=== PATIENT | male | born 1955 ===

== ENCOUNTER 2024-03-30 12:46 | Inpatient (IN) | payer MEDICARE, MEDICAID, SELFPAY ==
--- NOTE | 2024-03-30 | ECG_ITS ---
Test Reason : REPEAT TO EVAL FOR A.FIB Blood Pressure : / mmHG Vent. Rate : 090 BPM Atrial Rate : 000 BPM P-R Int : 000 ms QRS Dur : 080 ms QT Int : 382 ms P-R-T Axes : 000 008 017 degrees QTc Int : 467 ms Atrial fibrillation Abnormal ECG When compared with ECG of 30-MAR-2024 13:11, No significant change was found Referred By: Jayce Robles Electronically Signed By:MASTER JARQUIN
--- NOTE | ~2024-03-30 | CT_ITS ---
EXAMINATION: CT HEAD WITHOUT CONTRAST CLINICAL INFORMATION: Seizure. COMPARISON: None available. TECHNIQUE: Contiguous axial imaging was performed from the skull base to vertex without intravenous administration of contrast. This CT examination was performed using dose optimization techniques as appropriate, variously including the following: *Automated exposure control *Adjustment of mA and/or kV according to patient size (this includes techniques or standardized protocols for targeted exams where dose is matched to indication/reason for exam; i.e. extremities or head) *Use of iterative reconstruction technique DLP: 661 mGy-cm FINDINGS: No intracranial hemorrhage, large infarction, or mass lesion is seen. Diffuse cortical atrophy. Mild bilateral chronic periventricular white matter ischemic change. No extra-axial collection is appreciated. The ventricles are normal in size and configuration without evidence of hydrocephalus. The visualized paranasal sinuses and mastoid air cells are clear. CT/CT head/brain wo IV con IMPRESSION: No acute intracranial finding. Electronically signed by: Dutch Rebolledo MD 03/30/2024 02:41 PM EDT
--- NOTE | ~2024-03-30 | XR_ITS ---
EXAMINATION: XR CHEST CLINICAL INFORMATION: Seizure. COMPARISON: None available. TECHNIQUE: Portable AP view of the chest was obtained. FINDINGS: The study is limited by portable technique, suboptimal inspiration, and overlying leads. The retrocardiac region is poorly evaluated; retrocardiac focal infiltrate cannot be confirmed or excluded. The right lung appears grossly clear. The cardiac silhouette is suboptimally evaluated. The aorta may be mildly uncoiled, suggesting hypertension. The bones and soft tissues appear unremarkable. XR/XR chest 1V IMPRESSION: Findings as above. Electronically signed by: Dutch Rebolledo MD 03/30/2024 02:17 PM EDT RP
--- NOTE | ~2024-03-30 | XR_ITS ---
EXAMINATION: XR RIBS, LEFT CLINICAL INFORMATION: Fell 3 weeks ago. COMPARISON: None available. TECHNIQUE: 3 views of the left ribs were obtained. FINDINGS: There is mild streaky opacity at both lung bases, most suggestive of atelectasis. No consolidation or pneumothorax., or pleural effusion. There is slight blunting of the costophrenic angle suggestive of small pleural effusions. There are multiple left-sided rib fractures. There is a mildly displaced fracture of the seventh lateral rib, minimally displaced fracture of the left anterior eighth rib, healing fracture of the left posterior ninth rib with minimally nondisplaced fracture of the left lateral ninth rib, markedly displaced fracture of the 10th anterolateral rib. Most of these fractures are not healed. XR/XR ribs LT min 3V w CXR1V IMPRESSION: 1. Multiple left-sided rib fractures. 2. No pneumothorax. 3. Small bilateral pleural effusions. 4. Mild bibasilar atelectasis. Electronically signed by: Loni Ng MD 03/31/2024 01:37 PM EDT
--- NOTE | 2024-03-30 12:53 | ED_ITS ---
HPI - General Adult General Chief complaint: Seizure Stated complaint: SEIZURE,?ETOH WITHDRAWAL Time Seen by Provider: 03/30/24 12:53 Source: patient and EMS Mode of arrival: EMS Limitations: altered mental status History of Present Illness ED Provider: DR. Castorena HPI narrative: this is a 68-year-old male who is visiting friends in the area no old record in our hospital for this patient, according to EMS report patient is known to have ETOH issue, patient was witnessed by EMS having a seizure was given 2 mg of Versed IM that controlled his seizure, patient in postictal status, awake and alert but incoherent, patient is non historian at the moment, urine incontinence, no tongue bite. discharge paper from [facility] with instruction of alcohol withdrawal seizure was found in patient's belongings. Related Data Allergies Allergy/AdvReac Type Severity Reaction Status Date / Time No Known Allergies Allergy Verified 03/30/24 13:03 Review of Systems 2 Review of Systems: Yes Unobtainable due to mental status PMFSH Social History Social History Alcohol intake: current Do you have a plan to hurt others: No Plan Physical Exam ED Vital Signs: Vital Signs - 24 hr 03/30/24 13:00 03/30/24 14:06 Temperature 98.5 F 98.9 F Pulse Rate 116 H 96 Respiratory Rate 32 H 16 Blood Pressure 169/99 H 154/95 H Pulse Oximetry 96 98 Oxygen Delivery Method Room Air Room Air BMI result Body Mass Index 25.6 Vital signs have been reviewed and appear to be correct. Blood pressure elevated. Heart rate elevated Respiratory rate normal. Temperature normal. Oxygen saturation normal. Appearance: unkempt, disheveled, awake non historian. No acute distress. Head: Normal external exam. Normocephalic. Atraumatic. No Khan signs noted. No raccoon eyes noted Eyes: PERRLA. EOMI. Conjunctiva and sclera normal. Eyelids normal. ENT: TM's Normal. Pharynx normal. Uvula midline. Moist mucous membranes. No trismus noted. No drooling noted. No muffled voice noted. Neck: Normal inspection. Neck supple. FROM. No adenopathy. Thyroid Normal. No meningeal signs. No neck mass noted. CVS: Normal heart rate and rhythm. Heart sound normal. No murmurs noted. Pulses normal throughout. Respiratory: No respiratory distress. Painless inspiration. Breath sounds normal. No wheezes/rales/rhonchi noted. Chest nontender. No accessory muscle usage noted or decreased air movement noted. Abdomen: Soft and nontender. Bowel sounds normal in all 4 quadrants. No distention noted. No organomegaly noted. No visible injury noted. Back: No CVA tenderness. Full range of motion noted. Skin: Skin warm and dry. Normal skin color. Normal skin turgor. No rashes/lesions/lacerations noted. Extremities: No lower extremity edema. Extremities exhibit normal range of motion. Extremities nontender. Neuro: Cranial nerve exam: II-XII are grossly intact No motor deficit. No sensory deficit. Reflexes normal. Course Reevaluation(s) Reevaluation #1: 68-year-old male with witnessed seizure by EMS that was controlled with Versed IM, patient with history of alcohol withdrawal seizure, CT head unremarkable. Will start the patient on phenobarb Hypomagnesemia will replete magnesium. Time: 15:01 Medications Administered Discontinued Medications Generic Name Dose Route Start Last Admin Trade Name Freq PRN Reason Stop Dose Admin Sodium Chloride 1,000 mls @ 999 mls/hr 03/30/24 13:01 03/30/24 13:43 Ns IV 03/30/24 14:01 999 mls/hr .Q1H1M ONE Administration Phenobarbital Sodium 292 mg 03/30/24 14:00 03/30/24 14:04 Phenobarbital Sodium 130 Mg/Ml Im Once IM 03/30/24 14:01 292 mg ONCE ONE Administration Protocol Medical Decision Making Differential Diagnosis Differential Diagnoses: The differential diagnosis associated with the presentation includes ( intracranial bleed, alcohol withdrawal seizure, electrolyte derangement, severe anemia , alcohol intoxication, substance abuse.) Admission/Observation Consideration of admission/observation: Escalation of care including admission/observation considered Consult Healthcare Provider Management of the patient was discussed with: Hospitalist ( Dr. Baugh) Lab Data MDM Lab Attestation statement: I reviewed the patient's lab results. 03/30/24 14:51 03/30/24 14:51 Labs: Lab Results 03/30/24 03/30/24 Range/Units 14:51 14:53 WBC 9.0 (4.8-10.8) X10*3/uL RBC 3.63 L (4.60-5.80) X10*6/uL Hgb 12.0 L (14.0-18.0) g/dl Hct 35.7 L (42.0-52.0) % MCV 98.3 H (80.0-98.0) fL MCH 33.1 H (27.0-33.0) pg MCHC 33.6 (31.0-36.0) g/dl RDW 13.8 (11.0-16.0) % Plt Count 334 (160-400) X10*3/uL MPV 8.9 L (9.4-12.4) fL Immature Gran % (Auto) 0.8 H (0.0-0.4) % Neut % (Auto) 86.7 H (45-73) % Lymph % (Auto) 6.6 L (20-40) % [place] % (Auto) 5.1 (2-11) % Eos % (Auto) 0.4 (0-4) % Baso % (Auto) 0.4 (0-2) % Lymph # (Auto) 0.6 L (1.2-4.9) X10*3/uL [place] # (Auto) 0.5 (0.1-1.2) X10*3/uL Eos # (Auto) 0.0 (0.0-0.4) X10*3/uL Baso # (Auto) 0.0 (0.0-0.2) X10*3/uL Abs Immat Gran (auto) 0.07 H (0.00-0.03) X10*3/uL Absolute Neuts (auto) 7.8 (2.0-8.3) x10*3/uL Absolute Nucleated RBC 0.000 (0.0-0.012) X10*3/uL Nucleated RBC % (auto) 0.0 (0.0-0.2) /100WBC Troponin I High Sens 3.4 (<3.5-35.0) ng/L B-Natriuretic Peptide 432 H (<100) pg/mL Urine Color Yellow Urine Appearance Clear Urine pH 6.0 (5.0-9.0) Ur Specific [place] 1.015 (1.005-1.025) Urine Protein 30 (1+) H (Neg-Trace) mg/dL Urine Glucose (UA) Negative (Negative) mg/dL Urine Ketones 15 (Negative) mg/dL Urine Blood Negative (Negative) Urine Nitrite Negative (Negative) Ur Leukocyte Esterase Negative (Negative) Urine RBC 0-2 (0-2) /HPF Urine WBC 0-5 (0-5) /HPF Ur Squamous Epith Cells 0-2 (0-2) /HPF Urine Bacteria None Seen (None Seen) Hyaline Casts 0-2 (0-2) /LPF Urine Opiates Screen Not Detected (Not Detect) Ur Buprenorphine Scrn Not Detected (Not Detect) ng/mL Ur Oxycodone Screen Not Detected (Not Detect) ng/mL Urine Methadone Screen Not Detected (Not Detect) ng/mL Urine Fentanyl Screen Not Detected (Not Detect) Ur Barbiturates Screen POSITIVE H (Not Detect) Ur Phencyclidine Scrn Not Detected (Not Detect) Ur Amphetamines Screen Not Detected (Not Detect) U Benzodiazepines Scrn POSITIVE H (Not Detect) Urine Cocaine Screen Not Detected (Not Detect) U Marijuana (THC) Screen Not Detected (Not Detect) Ethyl Alcohol < 10 mg/dL Independent Interpretation I performed an independent interpretation of an: Plain X-Ray (The study is limited by portable technique, suboptimal inspiration, and overlying leads. The retrocardiac region is poorly evaluated; retrocardiac focal infiltrate cannot be confirmed or excluded. The right lung appears grossly clear. The cardiac silhouette is suboptimally evaluated. The aorta ) and CT Scan ( head: No acute intracranial findings) Radiology Impression Discussion of test interpretation with radiology: I have reviewed the radiologist's reading. Chronic Conditions Patient?s care impacted by: Other ( alcohol consumption) Discharge Plan Discharge Clinical Impression: Alcohol related seizure, Hypomagnesemia Patient Disposition: Admitted As Inpatient
[2024-03-30 13:00] VITALS: BP 138/80; BP 169/99; PULSE 110; PULSE 116; RESP 32; TEMP 36.9; O2SAT 96; BMI 25.6
--- NOTE | 2024-03-30 13:02 | ECG_ITS ---
Test Reason : SEIZURE Blood Pressure : / mmHG Vent. Rate : 094 BPM Atrial Rate : 000 BPM P-R Int : 000 ms QRS Dur : 078 ms QT Int : 358 ms P-R-T Axes : 000 002 015 degrees QTc Int : 447 ms Atrial fibrillation Abnormal ECG No previous ECGs available Referred By: Talat Castroena Electronically Signed By:MASTER JARQUIN
[2024-03-30] MEDS: 0.9 % Sodium Chloride 1,000 ML 999 ML IV (13:43)
[2024-03-30] MEDS: PHENobarbitaL sodium 130 MG/ML IM ONCE 292 MG IM (14:04)
[2024-03-30 14:06] VITALS: BP 154/95; PULSE 96; RESP 16; TEMP 37.2; O2SAT 98
[2024-03-30 14:57] LABS: MANUAL DIFF FLAG NO
--- NOTE | 2024-03-30 14:58 | PC.NURSE ---
Pt difficult stick, labs drawn/sent. Pt voided in urinal, samples sent to lab.
[2024-03-30 15:01] LABS: Basophils Percent Auto 0.4 % (0-2); Eosinophils Percent Auto 0.4 % (0-4); Hematocrit 35.7 % (42.0-52.0); Imm Gran Abs Auto 0.07 X10*3/uL (0.00-0.03); Imm Gran Pct Auto 0.8 % (0.0-0.4); Lymphocytes Absolute Auto 0.6 X10*3/uL (1.2-4.9); Lymphocytes Percent Auto 6.6 % (20-40); Mean Corpuscular HGB Conc 33.6 g/dl (31.0-36.0); Mean Corpuscular Hemoglobin 33.1 pg (27.0-33.0); Mean Corpuscular Volume 98.3 fL (80.0-98.0); Mean Platelet Volume 8.9 fL (9.4-12.4); Monocytes Absolute Auto 0.5 X10*3/uL (0.1-1.2); Monocytes Percent Auto 5.1 % (2-11); Neutrophils Absolute Auto 7.8 x10*3/uL (2.0-8.3); Neutrophils Percent Auto 86.7 % (45-73); Platelet Count 334 X10*3/uL (160-400); Red Blood Count 3.63 X10*6/uL (4.60-5.80); Red Cell Distribution Width 13.8 % (11.0-16.0)
[2024-03-30 15:04] LABS: Appearance Urine Clear; Color Urine Yellow; Glucose Urine UA Negative (Negative); Leukocyte Esterase Urine Negative (Negative); Nitrite Urine Negative (Negative); Specific Gravity - Urine 1.015 (1.005-1.025); UMIC TRIGGER UACC YES; Urine Blood Negative (Negative); Urine Ketones 15 mg/dL (Negative); Urine Protein 30 (1+) mg/dL (Neg-Trace)
[2024-03-30 15:06] LABS: Bacteria Urine None Seen (None Seen); Hyaline Casts Urine 0-2 /LPF (0-2); RBC Urine 0-2 /HPF (0-2); Squamous Epithelial Cell Urine 0-2 /HPF (0-2); WBC Urine 0-5 /HPF (0-5)
[2024-03-30 15:14] LABS: Amphetamine Screen Urine Not Detected (Not Detect); Barbiturates, Urine POSITIVE (Not Detect); Benzodiazepines Screen Urine POSITIVE (Not Detect); Buprenorphine Scr Not Detected (Not Detect); Cannabinoid Screen Urine Not Detected (Not Detect); Cocaine Screen Urine Not Detected (Not Detect); Fentanyl, urine Not Detected (Not Detect); Methadone Screen, Urine Not Detected (Not Detect); Opiate Screen Urine Not Detected (Not Detect); Oxycodone Screen Urine Not Detected (Not Detect); Phencyclidine Screen Urine Not Detected (Not Detect)
[2024-03-30 15:18] LABS: Ethanol < 10 mg/dL
[2024-03-30 15:23] LABS: B Type Natriuretic Peptide 432 pg/mL (<100)
[2024-03-30 15:26] LABS: Troponin-I High Sensitivity 3.4 ng/L (<3.5-35.0)
[2024-03-30 15:35] LABS: Alanine Aminotransferase 41 U/L (0-40); Albumin Level 3.7 g/dL (3.5-5.0); Alkaline Phosphatase 126 U/L (39-117); Anion Gap 14 (12-20); Aspartate Amino Transferase 38 U/L (5-37); Bilirubin Direct 0.5 mg/dL (0.0-0.5); Bilirubin Total 1.3 mg/dL (0.0-1.0); Blood Urea Nitrogen 6 mg/dL (9-16); Calcium 8.7 mg/dL (8.4-10.2); Carbon Dioxide 27 mmol/L (22-29); Chloride 99 mmol/L (96-108); Creatinine Clr Calc Pharmacy 123.7; Estimated Glomerular Filt Rate > 60; Glucose Random 132 mg/dL (60-115); Lipase 31 U/L (8-78); Magnesium 1.3 mg/dL (1.6-2.6); Potassium 3.4 mmol/L (3.3-5.1); Sodium 137 mmol/L (135-145); Total Protein 6.9 g/dL (6.5-8.0)
--- NOTE | 2024-03-30 15:42 | PC.NURSE ---
patient IV infiltrated, attempting second IV access
[2024-03-30] MEDS: Magnesium Sulfate/H2O 2 GM/50 ML PIGGYBACK IV (16:30)
--- NOTE | 2024-03-30 16:31 | PC.NURSE ---
patient iv in right AC #20
--- NOTE | 2024-03-30 16:32 | PC.NURSE ---
patient asked this RN if he was in a room this morning , patient redirected that he came in from someone house after having a seizure. patient states that he was with his brother yajaira at his home. patient states he has not drank since sunday.
--- NOTE | 2024-03-30 16:39 | PHA.MEDREC ---
Addendum entered by Bill Dorsey [facility] 03/30/24 17:37: Reviewed by [facility] Addendum entered by Alyssa Uribe 03/30/24 17:34: Called [facility] in [place], [place]. They report baby aspirin, a MV, folic acid, magnesium, and thiamine had prescriptions sent on 02/14/24 but patient never picked them up. The Niacin was picked up this month. Addendum entered by Bill Dorsey [facility] 03/30/24 16:50: Reviewed by [facility]. Original Note: Pharmacy Consult ? Medication Reconciliation Pharmacy has completed the medication reconciliation. Used claim history to complete.
--- NOTE | 2024-03-30 16:42 | PC.NURSE ---
spoke to patients brother yajaira on the phone, states that patient was walking to the bathroom when he started to have a seizure and fell, patient then had second longer seizure until ems arrived. per patients brother patient as picked up sunday at [facility] after admission, patients brother states he does not know how he was discharged due to patient not being able to ambulate safely. patients brother states patient had empty liquor bottle with him when picked up but has no had any alcohol while staying at his house because he does n ot allow him to drink when he is there. patients brother states he is unsure if patient has stable living situation in [facility]
--- NOTE | 2024-03-30 16:51 | P.HPHOSP_ITS ---
History of Present Illness Date of Service: 03/30/24 Chief Complaint: seizure The patient is a 68-year-old male who is brought into the emergency room by EMS for what appears to be alcohol withdrawal seizures. The patient is currently unable to provide a meaningful history and hence the history is obtained from the ED providers report. Apparently the patient is visiting friends in the area and was brought to the ED by paramedics. Apparently he had a seizure which was treated with 2 mg of Versed by EMS. On arrival to the ED the patient was found to have the following on workup: Magnesium 1.3, bilirubin 1.3, AST 30 ALT 41. The patient was treated with loading dose of phenobarbital and now will be admitted for suspected alcohol withdrawal seizures. The patient is seen examined the emergency room around 04:00 o'clock. He appears to be less confused. He reports that he drinks several beers and ?nips? daily. Reports that his last drink was 2-3 days ago but is not 100% sure. He reports prior alcohol withdrawal seizure. He reports prior hospitalizations for alcohol withdrawal. Past medical history Reports being on metoprolol but unsure why Past surgical history Denies Family history Unclear Social history reports to drinking daily Review of Systems 2 Review of Systems: Negative except HPI/interval history. PMFSH Social History Alcohol intake: current Advance Directives: No Advance Directives Information Provided: No Do you have a plan to hurt others: No Plan Meds Allergies Allergy/AdvReac Type Severity Reaction Status Date / Time No Known Allergies Allergy Verified 03/30/24 13:03 Active Medications: Current Medications Magnesium Sulfate (Magnesium Sulfate/H2o) 2 gm in 50 mls @ 25 mls/hr IV ONCE ONE Stop: 03/30/24 17:34 Last Admin: 03/30/24 16:30 Dose: 25 mls/hr Pharmacy Consult (Consult Rx Etoh Phenob Im/Po) 1 each MISCELLANE ONCE PRN; Protocol PRN Reason: Consult order Phenobarbital (Phenobarbital 15 Mg Tablet) 45 mg PO BID RYAN; Protocol Stop: 04/01/24 21:01 Phenobarbital (Phenobarbital 15 Mg Tablet) 15 mg PO DAILY RYAN; Protocol Stop: 04/05/24 09:01 Phenobarbital (Phenobarbital 15 Mg Tablet) 15 mg PO BID RYAN; Protocol Stop: 04/03/24 21:01 Phenobarbital Sodium (Phenobarbital Sodium 130 Mg/Ml Vial Im Q3hx2) 1 mg IM Q3H RYAN; Protocol Stop: 03/30/24 20:01 Home Medications ?Medication ?Instructions ?Recorded ?Confirmed ?Last Taken ?Type metoprolol succinate 200 mg 200 mg PO DAILY 03/30/24 03/30/24 Unknown History tablet,extended release 24 hr niacin 100 mg tablet 100 mg PO DAILY 03/30/24 03/30/24 Unknown History Physical Exam 2 Vital Signs and Narrative: Vital Signs: Last Vital Signs Temp 98.9 F 03/30/24 14:06 Pulse 96 03/30/24 14:06 Resp 16 03/30/24 14:06 BP 154/95 H 03/30/24 14:06 Pulse Ox 98 03/30/24 14:06 O2 Del Method Room Air 03/30/24 14:06 BMI result Body Mass Index 25.6 Const: Other: Constitutional - awake and alert, oriented to place and month, disoriented to situation Eyes - PERRLA, EOMI Cardiovascular - S1S2, RRR, No edema Respiratory - Normal lung expansion, Normal respiratory effort, No respiratory distress, CTA bilaterally Gastrointestinal - NT / ND; +BS; No rebound or guarding - No CVA tenderness Extremities - no calf tenderness bilaterally, no swelling Musculoskeletal - Normal inspection, normal ROM Skin - Warm/Dry Neurological - no focal deficits, able to follow basic instructions Psychological - Appropriate affect Results Labs 03/30/24 14:51 03/30/24 14:51 Labs: Laboratory Results - last 24 hr 03/30/24 03/30/24 14:51 14:53 MCV 98.3 H MCH 33.1 H MCHC 33.6 RDW 13.8 Plt Count 334 MPV 8.9 L Immature Gran % (Auto) 0.8 H Neut % (Auto) 86.7 H Lymph % (Auto) 6.6 L [place] % (Auto) 5.1 Eos % (Auto) 0.4 Baso % (Auto) 0.4 Lymph # (Auto) 0.6 L [place] # (Auto) 0.5 Eos # (Auto) 0.0 Baso # (Auto) 0.0 Abs Immat Gran (auto) 0.07 H Absolute Neuts (auto) 7.8 Absolute Nucleated RBC 0.000 Nucleated RBC % (auto) 0.0 Anion Gap 14 Estim Creat Clear Calc 123.7 Estimated GFR > 60 Random Glucose 132 H Calcium 8.7 Magnesium 1.3 L* Total Bilirubin 1.3 H Direct Bilirubin 0.5 AST 38 H ALT 41 H Alkaline Phosphatase 126 H Troponin I High Sens 3.4 B-Natriuretic Peptide 432 H Total Protein 6.9 Albumin 3.7 Lipase 31 Urine Color Yellow Urine Appearance Clear Urine pH 6.0 Ur Specific [place] 1.015 Urine Protein 30 (1+) H Urine Glucose (UA) Negative Urine Ketones 15 Urine Blood Negative Urine Nitrite Negative Ur Leukocyte Esterase Negative Urine RBC 0-2 Urine WBC 0-5 Ur Squamous Epith Cells 0-2 Urine Bacteria None Seen Hyaline Casts 0-2 Urine Opiates Screen Not Detected Ur Buprenorphine Scrn Not Detected Ur Oxycodone Screen Not Detected Urine Methadone Screen Not Detected Urine Fentanyl Screen Not Detected Ur Barbiturates Screen POSITIVE H Ur Phencyclidine Scrn Not Detected Ur Amphetamines Screen Not Detected U Benzodiazepines Scrn POSITIVE H Urine Cocaine Screen Not Detected U Marijuana (THC) Screen Not Detected Ethyl Alcohol < 10 Imaging Radiologist's Impressions: Impressions Chest X-Ray 03/30/24 13:00 IMPRESSION: Findings as above. Electronically signed by: Dutch Rebolledo MD 03/30/2024 02:17 PM EDT RP Head CT 03/30/24 13:10 IMPRESSION: No acute intracranial finding. Electronically signed by: Dutch Rebolledo MD 03/30/2024 02:41 PM EDT RP Assessment and Plan (1) Hypomagnesemia: Status: Acute (2) Alcohol related seizure: Status: Acute Plan 68-year-old male with a reported history of alcohol use and prior alcohol withdrawal seizures who presents to the ED with what appears to be a withdrawal seizure. 1. Alcohol dependence with acute alcohol withdrawal seizure Given IV Versed by the EMS Initiated on phenobarb per protocol, will continue Monitor lytes consider care team / addicition med consult 2. Hypo mg Given 2 g IV in the ED, will repeat tomorrow 3. ? A. fib EKG appears to be sinus with ? PAC will repeat EKG Full code DVT pptx - lovenox Patient with alcohol withdrawal seizure and electrolyte abnormalities therefore expected to require at least 2 midnights in the hospital for management, hence he will be admitted as inpatient. Quality Stroke Does the patient have a stroke diagnosis?: No VTE Prior VTE?: No VTE Risk Level:: Medical - moderate - high VTE Device Contraindication: N/A - Device Ordered VTE Drug Contraindication: N/A - Med Ordered
--- OUTSIDE RECORDS SUMMARY | 2024-03-30 17:05 | XMS_ITS ---
Author Organization [facility] Address [address] [address] Care Team Providers Care Rerecording Mixer Name Role Phone JOSE ANTONIO CALDWELL Unavailable [phone] Allergies No Known Allergies Vital Signs Temperature 97.9 degrees Fahrenheit 07/19/19 24 Blood pressure systolic 118 mm Hg 07/19/19 24 Blood pressure diastolic 71 mm Hg 024 Heart Rate 66 /min 07/19/2023 Respiratory Rate 18 /min 07/19/2023 Oximetry 96 % 07/19/2023 Encounters Encounter Location Date Provider Diagnosis [address] [address] 07/19/2023 JOSE ANTONIO CALDWELL Elevated liver enzymes R74.8 and Scabies B86 Assessments Encounter Date Diagnosis (ICD Code) Assessment Notes Treatment Notes Treatment Clinical Notes 07/19/2023 Elevated liver enzymes (ICD-10 - R74.8) Will follow labs closely 07/19/2023 Scabies (ICD-10 - B86) Reports new skin itchiness. cont with topical treatment and add PRN Benadryl x 1 Plan Of Treatment Treatment Notes Assessment Notes Elevated liver enzymes Will follow labs closely Scabies Reports new skin itc hiness. cont with topical treatment and add PRN Benadryl x 1 Next Appt Details Follow Up: prn, Reason: Progress Notes * Carl RIOSDOB:1955 ( 67 yo M)Acc No.[id number]:07/19/2023 Progress Notes Patient:?Carl RIOS Provider:?JOSE ANTONIO CALDWELL NP :1955???Age:67 Y???Sex:Male Robert e:07/19/2023 Phone: Address:[address] [place] [id number] Subjective: * Chief Complaints: * ??? * HPI: ???New/Follow-up Patient Consult:? 67 year old male was seen and examined for management of acute illnesses. * ROS:?General/Constitutional:?Denies?Change in appetite.?Denies?Chills.?Denies?Fatigue.?Denies?Fever.?ENT:?Denies?Decreased sense of smell.?Denies?Difficulty in swallowing.?Denies?Ear problems.?Denies?Pain.?Respiratory:?Denies?Breathing problems.?Denies?Cough.?Denies?Shortness of breath.?Cardiovascular:?Denies?Chest pain.?Denies?Dizziness.?Denies?Palpitations.?Gastrointestinal:?Denies?Constipation.?Denies?Diarrhea.?Denies?Nausea.?Denies?Vomiting.?Musculoskeletal:?Denies?Arthritis/Arthralgia.?Denies?Muscle aches.?Admits?Pain in shoulder(s).?Skin:?Denies?Dry skin.?Admits?Itching.?Admits?Rash.?Neurologic:?Denies?Difficulty speaking.?Denies?Headache.?Denies?Pain.?Denies?Tingling/Numbness.?Denies?Tremor. ? * Medical History:? * Surgical History:? * Hospitalization/Major Diagno stic Procedure:? * Social History:?Positive alcohol. Denies tobacco. He is homeless. Code Status: His code status is full. * Medications:? * Allergies:?N.K.D.A. Objective: * Vitals:?BP:118/71mm Hg, HR:6 6/min, Temp:97.9F, RR:18/min, Oxygen sat %:96%. * Examination: ???General Examination: ?GENERAL APPEARANCE:?, pleasant, in no acute distress.?HEAD:?normocephalic , atraumatic.?EYES:?extraocular movement intact (EOMI), PERRL , sclera non-icteric.?EARS:??hearing mildly diminished.?ORAL CAVITY:?, mucosa moist.?THROAT:?no erythema , no exudate.?NECK/THYROID:?neck supple.?SKIN:?pale, warm, dry, no rashes.?HEART:?regular rate and rhythm , no murmurs, rubs, gallops.?LUNGS:?diminished breath sounds throughout, no wheezes, rales, rhonchi.?ABDOMEN:?soft, nontender, nondistended , bowel sounds present , no masses palpable , no organomegaly.?EXTREMITIES:?no edema, no focal weakness.?NEUROLOGIC:?alert, oriented to self, motor strength symmetric upper and lower extremities. No focal weakness.?PSYCH:?Calm, cooperative. No sign of anxiety or depression.? * Physical Examination:?Medications:?Medications?Augmentin 1 g b.i.d. for two days. Tylenol 650 mg q.6h. as needed for pain. Folic acid 1 mg daily. Metoprolol succinate 200 mg. Multivitamin one daily. Niacinamide 500 mg daily. Thiamine 100 mg daily. Aspirin has been discontinued.?As mentioned, he will need the dose permethrin as well as oral agent in a week; that will be the ivermectin..?Labs:?Labs?07/12/23: CBC-Wbc 7.7, Hgb 12.7, Hct 38.1, Plt : BMP- Na 136, K 5.0, BUN 13, Creat 0.69, GFR : LFT- Alk Phos 98,? ALT 66? AST 87.? Assessment: * Assessment: 1.?Scabies - B86 (Primary)?2 .?Elevated liver enzymes - R74.8? Plan: * Treatment: 2.?Elevated liver enzymes? Notes: Will follow labs closely?? * Procedure Codes:?95546 SHILPA ROBBINS FAC CARE SUBSEQ * Follow Up:?prn * Billing Information: * Visit Code:? * Procedure Codes:? 99015 NURSING FAC CARE SUBSEQ. Care Plan Details* * Sign off status: Completed true * Provider:?JOSE ANTONIO CALDWELL NP Date:? 024 Generated for Magdalena robbins/Luz/Brinda on:?03/30/2024 05:05 PM EDT History and Physical Notes * Physical Examination Category Sub-Category Detail Notes Medications Medications Augmentin 1 g b. i.d. for two days. Tylenol 650 mg q.6h. as needed for pain. Folic acid 1 mg daily. Metoprolol succinate 200 mg. Multivitamin one daily. Niacinamide 500 mg daily. Thiamine 100 mg daily. Aspirin has been discontinued. As mentioned, he will need the dose permethrin as well as oral agent in a week; that will be the ivermectin. Labs Labs 07/12/23: CBC-Wbc 7.7, Hgb 12.7, Hct 38.1, Plt : BMP- Na 136, K 5.0, BUN 13, Creat 0.69, GFR : LFT- Alk Phos 98, ALT 66 AST 87 Examination Category Sub-Category Detail Notes General Examination GENERAL APPEARANCE: , pleasa nt, in no acute distress HEAD: normocephalic , atra umatic EYES: extraocular movement intact (EOMI), PERRL , sclera non-icteric EARS: hearing mildly dimin ished THROAT: no erythema , no exu date NECK/THYROID: neck supple HEART: regular rate and rhy thm , no murmurs, rubs, gallops LUNGS: diminished breath so unds throughout, no wheezes, rales, rhonchi ABDOMEN: soft, nontender, non distended , bowel sounds present , no masses palpable , no organomegaly NEUROLOGIC: alert, oriented to s elf, motor strength symmetric upper and lower extremities. No focal weakness SKIN: pale, warm, dry, no rashes EXTREMITIES: no edema, no focal w eakness PSYCH: Calm, cooperative. N o sign of anxiety or depression ORAL CAVITY: , mucosa moist
--- OUTSIDE RECORDS SUMMARY | 2024-03-30 17:05 | XMS_ITS ---
Author Organization [facility] Address [address] [address] Care Team Providers Care Green Building Materials Distributor Name Role Phone FOREIGN VALENTIN Unavailable [phone] REASON FOR VISIT The patient is a resident of [facility] [place], who was seen in followup for his alcohol use disorder with recent withdrawal seizures, as well as for the question of scabies and elevated liver function tests. Problems Problem Type SNOMED Code ICD Code Onset Dates Problem Status W/U Status Risk Notes Problem [id number] Right shoulder pain, unspecified chronicity (M25.511) Active confirmed Encounters Encounter Location Date Provider [facility] [place],[address] [address] 07/17/2023 FOREIGN VALENTIN Right shoulder pain, unspecified chronicity M25.511 ; Alcohol use disorder F10.90 ; Scabies B86 and Elevated liver enzymes R74.8 Assessments Encounter Date Diagnosis (ICD Code) Assessment Notes Treatment Notes Treatment Clinical Notes 07/17/2023 Right shoulder pain, unspecified chronicity (ICD-10 - M25.511) 07/17/2023 Alcohol use disorder (ICD-10 - F10.90) 07/17/2023 Scabies (ICD-10 - B86) 07/17/2023 Elevated liver enzymes (ICD-10 - R74.8) 07/17/2023 Other Right shoulder pain. Plan: We will try him on a lidocaine patch, and therapies will continue to work with him to regain strength in that arm and function. Alcohol issues. Plan: No seizures have been reported. He is otherwise doing well and should follow up in an outpatient program. Scabies. Plan: He received a Permethrin. Elevated LFTs. Plan: We will recheck his laboratories later this week. Plan Of Treatment Treatment Notes Assessment Notes Other Right shoulder pain. Plan: We will try him on a lidocaine patch, and therapies will continue to work with him to regain strength in that arm and function. Alcohol issues. Plan: No seizures have been reported. He is otherwise doing well and should follow up in an outpatient program. Scabies. Plan: He received a Permethrin. Elevated LFTs. Plan: We will recheck his laboratories later this week. Next Appt Details Follow Up: prn, Reason: Progress Notes * Carl BISHOPDOB:1955 ( 67 yo M)Acc No.[id number]:07/17/2023 Patient:?Carl BISHOP Provider:?FOREIGN VALENTIN MD :1955???Age:67 Y???Sex:Male Robert e:07/17/2023 Phone: Address:[address] [place] [address], [id number] Subjective: * Chief Complaints: * ???The patient is a resident of [facility] [place], who was seen in followup for his alcohol use disorder with recent withdrawal seizures, as well as for the question of scabies and elevated liver function tests. * HPI: ???New/Follow-up Patient Consult:? The patient is now complaining of right shoulder pain. He said there was an IV that had infiltrated at [facility] causing numbness in his right hand and swelling, with pain going all up to the shoulder. The numbness went away, but has returned a little bit in his hand today. There is no swelling present, but he has had consistent pain in the right shoulder, especially with lateral movement. He is able to raise his arm above his head. Otherwise, no other events have been reported. No seizures have been reported. He does need repeat LFTs later this week to ensure that they are not going any higher, as they have been in the 60s and 70s. The patient received his Permethrin treatment yesterday, so hopefully he can come off of precaution soon in his plan. According to case management, he is to be discharged on 07/23/2023 to his brother's home. * ROS:?On review of systems, aside from the right shoulder pain, he denies any chest pain, shortness of breath, fever, chills or diaphoresis, bowel or bladder issues. * Medical History:? * Surgical History:? * Hospitalization/Major Diagno stic Procedure:? * Social History:?Positive alcohol. Denies tobacco. He is homeless. Code Status: His code status is full. * Medications:? Objective: * Vitals:?Weight of 165.0 poun ds. Blood pressure 134/65, temperature 98.0, pulse 72, respiratory rate 18, and O2 sat of 95% on room air. * Examination: ???AIMS Annual: ???GENERAL APPEARANCE: He is ambulating in his room in no acute distress. ?HEART: Regular rate and rhythm. S1, S2. No murmurs, gallops, or rubs. ?LUNGS: Clear to auscultation x2. ?ABDOMEN: Bowel sounds are positive, soft, nontender, and nondistended. ?EXTREMITIES: No clubbing, cyanosis, or edema. ?MUSCULOSKELETAL: As mentioned, he has full range of motion of his arm, but pain with sort of lateral movement. ?SKIN: No open skin areas are seen. * Physical Examination:?Medications:?Medications?Otherwiseunchanged.? Assessment: * Assessment: 1.?Right shoulder pain, unsp ecified chronicity - M25.511 (Primary)?2.?Alcohol use disorder - F10.90?3.?Scabies - B86?4.?Elevated liver enzymes - R74.8? Plan: * Treatment: * Procedure Codes:?31681 NURSI NG FAC CARE SUBSEQ * Follow Up:?prn * Billing Information: * Visit Code:? * Procedure Codes:? 96040 NURSING FAC CARE SUBSEQ. Care Plan Details* * Sign off status: Completed true * Provider:?FOREIGN VALENTIN MD Date:? Generated for Printbeth robbins/Luz/eTransmitting on:?03/30/2024 05:05 PM EDT History and Physical Notes * Physical Examination Category Sub-Category Detail Notes Medications Medications Otherwise unchanged
--- OUTSIDE RECORDS SUMMARY | 2024-03-30 17:05 | XMS_ITS | Continuity of Care Document ---
Author Organization [facility] Address [address] [place] [address] Phone Care Team Providers Care Shovel Handle Assembler Name Role Phone Pcp-None, MD Martins Primary Care Provider DO Jhonatan Wilkes Emergency Provider [phone] Chief Complaint and Reason for Visit Chief Complaint fall Allergies, Adverse Reactions, Alerts No known allergies Social History Smoking Status Status Start Date End Date Date of Observa tion Ex-smoker (finding) September 092021 9:53pm Additional Data Assigned Sex Male Problems Active Problems Medical Problem Onset Date Status Weakness Active Vital Signs Vital Reading Result Reference Range Collection Date/Time Body Temperature 97.0 [degF] 97.6-99.6 September 09, 2021 9:20pm Heart Rate 90 /min 60-90 September 09 9:20pm Respiratory rate 18 /min 12-September 09, 2021 9:20pm Oxygen saturation by Pulse oximetry 100 % 95-100 September 09, 2021 9:2 0pm BP Systolic 150 mm[Hg] 90-140 September 09 9:20pm BP Diastolic 100 mm[Hg] 60-90 September 09 9:20pm Advance Directives Advance Directive Response Recorded Date/ Time Advance Directives No September 09 022 9:18pm Health Care Proxy No September 09 9:18pm Insurance Providers Guarantor YINA BISHOP Address [address] [id number] Contact Info. Home Phone: Payer Policy Id Coverage Id Subscriber's Name Subscriber Id Effective Date Expiration Date Self Pay Self N/A Encounters Encounter Location(s) Arrival/Admit Date Discharge/Depart Date Provider(s) Departed Emergency [facility] September 09, 2021 9:18pm September 09, 2021 11:17pm null Plan of Treatment Future Tests Future scheduled test information is unavailable Pending Tests Pending diagnostic test information is unavailable Future Visits Future appointment information is unavailable Referrals to Other Providers Reason for Referral Referral Start Date Provider Provider Contact Information Provider Address Pcp-None , Md MARTINS Future Procedures Future procedure information is unavailable Future Medications Future medication information is unavailable Patient Instructions ED Weakness (Uncertain Cause )
--- OUTSIDE RECORDS SUMMARY | 2024-03-30 17:05 | XMS_ITS | Continuity of Care Document ---
Author Organization [facility] Address [address] [place] [address] Phone Care Team Providers Care Concrete Carpenter Name Role Phone Pcp-Kaykay, MD Dove Primary Care Provider MD Siddhartha Stroud Emergency Provider Unav ailable Care Teams Patient Care Team Team Status: Active Member Role Status Dates Pcp-MD Kaykay Primary Care Provider Active Patient Care Team Team Status: Inactive Member Role Status Dates Pcp-Kaykay , Primary Care Provider Active St art: May 04, 2023 End: May 04, 2023 Siddhartha Dunlap MD Emergency Provider Active Start: May 04, 2023 End: May 04, 2023 Chief Complaint and Reason for Visit Chief Complaint INTOXICATION Allergies, Adverse Reactions, Alerts No known allergies Social History Smoking Status Unknown if ever smoked Additional Data Assigned Sex Male Problems Active Problems Medical Problem Onset Date Status Alcohol intoxication Active Inactive/Resolved Problems Medical Problem Onset Date Status Weakness Resolved Procedures Procedure Date Performed Status EKG Electrocardiogram May 04, 2023 6:28pm active Vital Signs Vital Reading Result Reference Range Collection Date/Time Body Temperature 98.6 [degF] 97.6-99.6 May 042022 6:34pm Heart Rate 84 /min 60-90 May 04, 2023 6:34pm Respiratory rate 16 /min 12-24 May 042022 6:34pm Oxygen saturation by Pulse oximetry 98 % 95-100 May 04, 2023 6:34pm BP Systolic 132 mm[Hg] 90-140 May 04, 2023 6:34pm BP Diastolic 80 mm[Hg] 60-90 May 04, 2023 6:34pm Advance Directives Advance Directive Response Recorded Date/ Time Pt has Medical Orders for Clementine mccallum Sustaining Tx Form (MOLST)? No May 04, 2023 6:26pm Advance Directives No April 6:26pm Health Care Proxy No May 04, 2023 6:26pm Insurance Providers Guarantor YINA EDNA Address [address] [place], [place] [id number] Contact Info. Home Phone: Payer Policy Id Coverage Id Subscriber's Name Subscriber Id Effective Date Expiration Date Medicare A&B [id number] YINA BISHOP [id number] Self Pay Self N/A Encounters Encounter Location(s) Arrival/Admit Date Discharge/Depart Date Provider(s) Departed Emergency [facility] May 04, 2023 6:25pm May 04, 2023 7:55pm null Plan of Treatment Future Tests Future scheduled test information is unavailable Pending Tests Pending diagnostic test information is unavailable Future Visits Future appointment information is unavailable Referrals to Other Providers Reason for Referral Referral Start Date Provider Provider Contact Information Provider Address Pcp-Md ELIEZER Mccracken Future Procedures Future procedure information is unavailable Future Medications Future medication information is unavailable Patient Instructions ED Alcohol Intoxication
--- OUTSIDE RECORDS SUMMARY | 2024-03-30 17:05 | XMS_ITS ---
Author Organization [facility] Address [address] [address] Care Team Providers Care Manager Placement Name Role Phone FOREIGN VALENTIN Unavailable [phone] REASON FOR VISIT [facility] [place], who was seen in followup for his alcohol use disorder as well as for the question of the scabies and atrial fibrillation. Problems Problem Type SNOMED Code ICD Code Onset Dates Problem Status W/U Status Risk Notes Problem [id number] Elevated liver enzymes (R74.8) Active confirmed Encounters Encounter Location Date Provider [facility] [place] [address] [place] [phone] 07/13/2023 FOREIGN VALENTIN Scabies B86 ; Alcoho l use, unspecified with withdrawal, uncomplicated F10.930 and Elevated liver enzymes R74.8 Assessments Encounter Date Diagnosis (ICD Code) Assessment Notes Treat ment Notes Treatment Clinical Notes 07/13/2023 Scabies (ICD-10 - B86) 07/13/2023 Alcohol use, unspecified with withdrawal, uncomplicated (ICD-10 - F10.930) 07/13/2023 Elevated liver enzymes (ICD-10 - R74.8) 07/13/2023 Other Question of scabies. Plan: He will have the permethrin second treatment on 07/16/2023. Alcohol use disorder. Plan: He continues to require some rehab to regain strength and endurance. Shift Lab Technician should be involved to try to set him up with an outpatient program as this unfortunately has been a chronic issue for him. Elevated liver function test, most likely associated with his alcohol use. Plan: We will repeat his laboratories again next week. Plan Of Treatment Treatment Notes Assessment Notes Other Question of scabies. Plan: He will have the permethrin second treatment on 07/16/2023. Alcohol use disorder. Plan: He continues to require some rehab to regain strength and endurance. Shift Lab Technician should be involved to try to set him up with an outpatient program as this unfortunately has been a chronic issue for him. Elevated liver function test, most likely associated with his alcohol use. Plan: We will repeat his laboratories again next week. Next Appt Details Follow Up: prn, Reason: Progress Notes * Carl RIOSDOB:1955 ( 67 yo M)Acc No.[id number]:07/13/2023 Patient:?Carl RIOS Provider:?FOREIGN VALENTIN MD :1955???Age:67 Y???Sex:Male Robert e:07/13/2023 Phone: Address:[address] [place] [address], [id number] Subjective: * Chief Complaints: * ???The patient is a resident of [facility] [place], who was seen in followup for his alcohol use disorder as well as for the question of the scabies and atrial fibrillation. * HPI: ???New/Follow-up Patient Consult:? The patient is doing okay. No other events have been reported. 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 Otherwise, no other events have been reported. He is due for another permethrin treatment on 07/16/2023. * ROS:?He denied chest pain, shortness of breath, fever, chills, or diaphoresis. * Medical History:? * Surgical History:? * Hospitalization/Major Diagno stic Procedure:? * Social History:?Positive alcohol. Denies tobacco. He is homeless. Code Status: His code status is full. * Medications:? Objective: * Vitals:?Weight of 165.0 poun ds. Blood pressure was 133/74, temperature 98.1, pulse 72, respiratory rate 18, and O2 sat of 96% on room air. * Examination: ???AIMS Annual: ???GENERAL APPEARANCE: He is sitting up in bed, in no acute distress. ?HEART: Regular rate and rhythm. S1, S2. No murmurs, gallops, or rubs. ?LUNGS: Clear to auscultation x2. ?ABDOMEN: Bowel sounds are positive, soft, nontender, and nondistended. ?EXTREMITIES: No clubbing, cyanosis, or edema. * Physical Examination:?Medications:?Medications?His current medications include:Senna.Toprol.Multivitamin.Niacinamide.Folic acid.Vitamin B1.Permethrin to be given on the .?Labs:?Labs?Laboratories from yesterday showed the following:?His sodium was 136, potassium 5.0,chloride 100, bicarb 25, glucose 99, BUN 13, creatinine 0.69, calcium 9.55, ALTof 66, AST of 87, alkaline phosphatase 98, total bilirubin 0.39, total protein7.1, albumin 3.7, globulin 3.4, with a GFR of 101.? White count of 7.7, hemoglobin 12.7,hematocrit of 38.1, and platelet count of 586.? Assessment: * Assessment: 1.?Scabies - B86 (Primary)?2 .?Alcohol use, unspecified with withdrawal, uncomplicated - F10.930?3.?Elevated liver enzymes - R74.8? Plan: * Treatment: * Procedure Codes:?01539 SHILPA ROBBINS FAC CARE SUBSEQ * Follow Up:?prn * Billing Information: * Visit Code:? * Procedure Codes:? 95331 NURSING FAC CARE SUBSEQ. Care Plan Details* * Sign off status: Completed true * Provider:?FOREIGN VALENTIN MD Date:? Generated for Magdalena robbins/Luz/Carsmitting on:?03/30/2024 05:05 PM EDT History and Physical Notes * Physical Examination Category Sub-Category Detail Notes Medications Medications His current medications include: Senna. Toprol. Multivitamin. Niacinamide. Folic acid. Vitamin B1. Permethrin to be given on the Labs Labs Laboratories from yesterday showed the following: His sodium was 136, potassium 5.0, chloride 100, bicarb 25, glucose 99, BUN 13, creatinine 0.69, calcium 9.55, ALT of 66, AST of 87, alkaline phosphatase 98, total bilirubin 0.39, total protein 7.1, albumin 3.7, globulin 3.4, with a GFR of 101. White count of 7.7, hemoglobin 12.7, hematocrit of 38.1, and platelet count of 586
--- OUTSIDE RECORDS SUMMARY | 2024-03-30 17:05 | XMS_ITS | Continuity of Care Document ---
Author Organization [facility] Address [address] [place] [address] Phone Care Team Providers Care Percussion Instrument Tuner Name Role Phone PcpMD Derrell Braxton Primary Care Provider MD Siddhartha Stroud Emergency Provider Unav MD Fidencio Ching Jr Emergency Provider [phone] Care Teams Patient Care Team Team Status: Active Member Role Status Dates PcpMD Irais Primary Care Provider Active Visit Care Team Team Status: Inactive Member Role Status Dates PcpMD Irais Primary Care Provider Active St art: May 04, 2023 End: May 04, 2023 Siddhartha Dunlap MD Emergency Provider Active Start: May 04, 2023 End: May 04, 2023 Visit Care Team Team Status: Inactive Member Role Status Dates Md Myrtle MD Primary Care Provider Active St art: May 07, 2023 End: May 08, 2023 Fidencio Cordero Jr, MD Emergency Provider Active Start: May 07, 2023 End: May 08, 2023 Chief Complaint and Reason for Visit Chief Complaint INTOXICATION Allergies, Adverse Reactions, Alerts No known allergies Social History Smoking Status Status Start Date End Date Date of Observa tion Unknown if ever smoked Novem 2022 3:21am Observation Status Observation Response Date of Response Living Situation Apartment May 08, 2023 3:21am Additional Data Assigned Sex Male Problems Active Problems Medical Problem Onset Date Status Alcohol intoxication Active Atrial fibrillation Active Inactive/Resolved Problems Medical Problem Onset Date Status Weakness Resolved Procedures Procedure Date Performed Status EKG Electrocardiogram May 04, 2023 6:28pm active EKG ED Electrocardiogram May 07, 2023 10: 43pm active Relevant Diagnostic Tests and/or Laboratory Data Laboratory Results Test Date/Time Result Interpretation Reference Range Result Comment Performing Site White Blood Count May 07, 2023 11:30pm 7.6 X10 3/uL 4.5-11.0 [facility] [id number] [address] [place] [address] [id number] Red Blood Count May 07, 2023 11:30pm 3.98 X10 6/uL 4.00-5.50 [facility] [id number] [address] [place] [address] 24016 Hemoglobin May 07, 2023 11:30pm 13.6 g/dl 12.0-17.0 [facility] [id number] [address] [place] [address] 51845 Hematocrit May 07, 2023 11:30pm 40.1 % 35.0-50.0 [facility] [id number] [address] [place] [address] 44184 Mean Corpuscular Volume May 07, 2023 11:30pm 100.8 fl 80.0-100.0 [facility] [id number] [address] [place] [address] 84220 Mean Corpuscular Hemoglobin May 07, 2023 11:30pm 34.2 pg 27.0-34.0 [facility] [id number] [address] [place] [address] 31977 Mean Corpuscular Hemoglobin Concent May 07, 2023 11:30pm 33.9 g/dl 31.0-36.0 [facility] [id number] [address] [place] [address] [id number] Red Cell Distribution Width May 07, 2023 11:30pm 13.6 % 11.5-15.0 [facility] [id number] [address] [place] [address] 10685 Platelet Count May 07, 2023 11:30pm 323 X10 3/uL 150-400 [facility] [id number] [address] [place] [address] 65049 Neutrophils (%) (Auto) May 07, 2023 11:30pm Not Reportable [facility] [id number] [address] [place] [address] 50134 Lymphocytes (%) (Auto) May 07, 2023 11:30pm Not Reportable [facility] [id number] [address] [facility] 49[address] Monocytes (%) (Auto) May 07, 2023 11:30pm Not Reportable [facility] [id number] [address] [place] [address] 47270 Eosinophils (%) (Auto) May 07, 2023 11:30pm Not Reportable [facility] [id number] [address] [place] [address] 28763 Basophils (%) (Auto) May 07, 2023 11:30pm Not Reportable [facility] [id number] [address] [place] [address] 66744 Neutrophils # (Auto) May 07, 2023 11:30pm Not Reportable [facility] [id number] [address] [place] [address] 22842 Lymphocytes # (Auto) May 07, 2023 11:30pm Not Reportable [facility] [id number] [address] [place] [address] 63444 Basophils # (Auto) May 07, 2023 11:30pm Not Reportable [facility] [id number] [address] [place] [address] 16837 Neutrophils % (Manual) May 07, 2023 11:30pm 73 % [facility] [id number] [address] [place] [address] 59824 Band Neutrophils % (Manual) May 07, 2023 11:30pm 0 % 0-6 [facility] [id number] [address] [place] [address] 28078 Lymphocytes % (Manual) May 07, 2023 11:30pm 10 % [facility] [id number] [address] [place] [address] 18594 Reactive Lymphocytes % (Manual) May 07, 2023 11:30pm 0 % [facility] [id number] [address] [place] [address] 17629 Monocytes % (Manual) May 07, 2023 11:30pm 14 % [facility] [id number] [address] [place] [address] 80898 Eosinophils % (Manual) May 07, 2023 11:30pm 2 % [facility] [id number] [address] [facility] 37980 Basophils % (Manual) May 07, 2023 11:30pm 0 % [facility] [id number] [address] [facility] 49289 Metamyelocyte s % (manual) May 07, 2023 11:30pm 0 % 0-1 [facility] [id number] [address] [place] [address] 18938 Myelocytes % (Manual) May 07, 2023 11:30pm 1 % 0-0 [facility] [id number] [address] [place] [address] 70009 Promyelocytes % (Manual) May 07, 2023 11:30pm 0 % 0-0 [facility] [id number] [address] [place] [address] 28537 Blast Cells % (Manual) May 07, 2023 11:30pm 0 % 0-0 [facility] [id number] [address] [place] [address] 51900 Plasma Cells % (manual) May 07, 2023 11:30pm 0 0-0 [facility] [id number] [address] [place] [address] 73386 Neutrophils # (Manual) May 07, 2023 11:30pm 5.5 X10 3/uL 1.5-7.8 [facility] [id number] [address] [place] [address] 42372 Lymphocytes # (Manual) May 07, 2023 11:30pm 0.8 X10 3/uL 1.0-4.8 [facility] [id number] [address] [place] [address] 38291 Monocytes # (Manual) May 07, 2023 11:30pm 1.1 X10 3/uL 0.0-0.8 [facility] [id number] [address] [place] [address] 57793 Eosinophils # (Manual) May 07, 2023 11:30pm 0.2 X10 3/uL 0.0-0.5 [facility] [id number] [address] [place] [address] 15761 Basophils # (Manual) May 07, 2023 11:30pm 0.0 X10 3/uL 0.0-0.2 [facility] [id number] [address] [place] [address] Platelet Estimate May 07, 2023 11:30pm Adequate [facility] [id number] [address] [place] [address] Macrocytosis May 07, 2023 11:30pm Slight [facility] [id number] [address] [place] [address] 87862 Ovalocytes May 07, 2023 11:30pm Slight [facility] [id number] [address] [place] [address] 86205 Nucleated Red Blood Cells % May 07, 2023 11:30pm 0.0 /100 WBC 0.0-0.0 [facility] [id number] [address] [place] [address] Sodium Level May 07, 2023 11:30pm 134 mmol/L 137-146 [facility] [id number] [address] [place] [address] Potassium Level May 07, 2023 11:30pm 4.0 mmol/L 3.5-5.3 Specimen hemolyzed, results affected [facility] [id number] [address] [place] [address] Chloride Level May 07, 2023 11:30pm 96 mmol/L 98-107 [facility] [id number] [address] [place] [address] 24579 Carbon Dioxide Level May 07, 2023 11:30pm 22 mmol/L 23-32 [facility] [id number] [address] [place] [address] 06231 Anion Gap May 07, 2023 11:30pm 16 mmol/L 5-15 [facility] [id number] [address] [place] [address] 01880 Blood Urea Nitrogen May 07, 2023 11:30pm 8 mg/dl 5-25 [facility] [id number] [address] [place] [address] 10626 Creatinine May 07, 2023 11:30pm 0.6 mg/dL 0.6-1.4 [facility] [id number] [address] [place] [address] 05579 Estimated Creatinine Clearance May 07, 2023 11:30pm Legal Examiner Unable to Calculate CRCL,Ht and/or Wt missing [facility] [id number] [address] [place] [address] 65906 Estimat Glomerular Filtration Rate May 07, 2023 11:30pm 106 >90 Reported eGFR is based on the CKD-EPI 2020 equation that does not use a race coefficient. Additional information can be found at:[id number] ([email or web address].[email or web address]) [facility] [id number] [address] [place] [address] 04352 BUN/Creatinin e Ratio May 07, 2023 11:30pm 13.3 10.0-20.0 [facility] [id number] [address] [place] [address] 51488 Glucose Level May 07, 2023 11:30pm 102 mg/dL 70-100 [facility] [id number] [address] [place] [address] 18527 Calcium Level May 07, 2023 11:30pm 9.5 mg/dl 8.6-10.3 [facility] [id number] [address] [place] [address] 36521 Phosphorus Level May 07, 2023 11:30pm 3.2 mg/dL 2.5-4.5 [facility] [id number] [address] [place] [address] 93609 Magnesium Level May 07, 2023 11:30pm 2.0 mg/dL 1.8-2.5 [facility] [id number] [address] [place] [address] 94131 Total Bilirubin May 07, 2023 11:30pm 0.5 mg/dl <1.1 [facility] [id number] [address] [place] [address] 64258 Aspartate Amino Transf (AST/SGOT) May 07, 2023 11:30pm 80 U/L 15-41 Specimen hemolyzed, results affected, evaluate with caution. [facility] [id number] [address] [place] [address] 89646 Alanine Aminotransfer ase (ALT/SGPT) May 07, 2023 11:30pm 40 U/L 14-63 Gross hemolysis, evaluate with caution [facility] [id number] [address] [place] [address] 93193 Troponin T High Sensitivity May 07, 2023 11:30pm 16 ng/L <13 Normal range: Females <9 ng/L Males <14 ng/L Values greater than or equal to 52 ng/L indicates acute myocardial injury/infarcti on Values between '10 and 51 ng/L' (for females) or '15 and 51 ng/L' (for males) require clinical correlation and is not diagnostic of acute myocardial injury.Consider repeat at 1 and 3 hours.A dynamic increase of ? greater than 5 ng/L? at 1 hour or 3 hours indicates of acute myocardial injury/infarcti on.For a patient with an estimated GFR of less than 30 mL/min/1.73 m2 or receiving dialysis, a dynamic increase of greater than 20% at 3 hours indicates acute myocardial injury.A value of less than 9 ng/L (in females) or less than 14 ng/L (in males) with a dynamic change of less than 3 ng/L, greater than 3 hours after symptom onset, generally rules out acute myocardial injury/infarcti on.Refer to Chest Pain order sets for additional clinical decision support (using the HEART score for the ED or the UMM score for the inpatient setting). [facility] [id number] [address] [place] [address] 70964 Total Protein May 07, 2023 11:30pm 7.5 g/dL 6.4-8.3 [facility] [id number] [address] [place] [address] 91527 Albumin May 07, 2023 11:30pm 3.7 g/dl 4.0-5.0 [facility] [id number] [address] [place] [address] 39193 Albumin/Globu susannah Ratio May 07, 2023 11:30pm 1.0 1.0-2.6 [facility] [id number] [address] [place] [address] 32669 Alkaline Phosphatase May 07, 2023 11:30pm 92 U/L 40-129 [facility] [id number] [address] [place] [address] 93059 Urine Amphetamines Screen May 08, 2023 2:57am Negative Negative Amphetamines Cutoff level 1000 ng/mL. [facility] [id number] [address] [place] [address] 92592 Urine Methadone Screen May 08, 2023 2:57am Negative Negative Methadone Cutoff level 300 ng/mL [facility] [id number] [address] [place] [address] 89197 Urine Oxycodone Screen May 08, 2023 2:57am Negative Negative Oxycontin/Oxyco done Cutoff level 100 ng/mL [facility] [id number] [address] [place] [address] 83455 Urine Buprenorphine Screen May 08, 2023 2:57am Negative Negative Buprenorphine Cutoff level 5 ng/mL [facility] [id number] [address] [place] [address] 56696 Urine Opiates Screen May 08, 2023 2:57am Negative Negative Opiate Cutoff level 300 ng/mLOxycontin/ Oxycodone is not detected below the threshold of20,000 ng/mL [facility] [id number] [address] [place] [address] 10327 Urine Fentanyl Screen May 08, 2023 2:57am Negative Negative Fentanyl Cutoff level 2.0 ng/mL [facility] [id number] [address] [place] [address] 96680 Urine Benzodiazepin es Screen May 08, 2023 2:57am Negative Negative Please note that the current method for benzodiazepines may be less sensitive to lorazapam detection than previously. If this result is negative and you are concerned about a false negative result for lorazepam, additional testing is possible. Please contact the laboratory.Phil odiazepine Cutoff level 200 ng/mL [facility] [id number] [address] [place] [address] 87630 Urine Cocaine Screen May 08, 2023 2:57am Negative Negative Cocaine Cutoff level 300 ng/mL [facility] [id number] [address] [place] [address] 02792 Urine Cannabinoids Screen May 08, 2023 2:57am Negative Negative THC Cutoff level 50 ng/mLThis report is intended for use in clinical monitoring and management of patients. It is not intended for use in employment related drug testing or court related proceedings. Samples are not routinely tested for adulteration and are assumed to be within the normal physiological pH range of 5 - 8. [facility] [id number] [address] [place] [address] 45374 Serum Alcohol May 07, 2023 11:30pm 170 mg/dl <10 [facility] [id number] [address] [place] [address] 53502 Vital Signs Vital Reading Result Reference Range Collection Date/Time Body Temperature 98.6 [degF] 97.6-99.6 May 042022 6:34pm Heart Rate 84 /min 60-90 May 04, 2023 6:34pm Respiratory rate 16 /min 12-May 042022 6:34pm Oxygen saturation by Pulse oximetry 98 % 95-100 May 04, 2023 6:34pm BP Systolic 132 mm[Hg] 90-140 May 04, 2023 6:34pm BP Diastolic 80 mm[Hg] 60-90 May 04, 2023 6:34pm Height 177.8 cm May 08, 2023 3:34am Weight 77.11 kg May 08, 2023 3:34am Body Temperature 98.2 [degF] 97.6-99.6 May 082022 3:19am Heart Rate 107 /min 60-90 May 08, 2023 8:22am Respiratory rate 19 /min -May 082022 8:22am Oxygen saturation by Pulse oximetry 98 % 95-100 May 08, 2023 8:22am BP Systolic 114 mm[Hg] 90-140 May 08, 2023 8:22am BP Diastolic 77 mm[Hg] 60-90 May 08, 2023 8:22am BMI (Body Mass Index) 24.4 kg/m2 Novemb 2022 3:34am Advance Directives Advance Directive Response Recorded Date/ Time Pt has Medical Orders for Li fe Sustaining Tx Form (MOLST)? No May 04, 2023 6:26pm Advance Directives No April 6:26pm Health Care Proxy No May 04, 2023 6:26pm Advance Directives No April 9:30pm Health Care Proxy No May 07, 2023 9:30pm Insurance Providers Guarantor YINA BISHOP Address [address] [place] [address] Contact Info. Home Phone: Payer Policy Id Coverage Id Subscriber's Name Subscriber Id Effective Date Expiration Date [facility] No [facility] [id number] YINA BISHOP [id number] Medicare A&B [id number] YINA BISHOP [id number] Self Pay Self N/A SP Pending Medicaid Apps [id number] YINA BISHOP [id number] Encounters Encounter Location(s) Arrival/Admit Date Discharge/Depart Date Provider(s) Departed Emergency [facility] May 04, 2023 6:25pm May 04, 2023 7:55pm null Departed Emergency [facility] May 07, 2023 9:30pm May 08, 2023 9:12am null Plan of Treatment Future Tests Future scheduled test information is unavailable Pending Tests Test Name Ordered Date Scheduled Date Troponin T High Sensitivity May 07, 2023 11:44pm Troponin T High Sensitivity May 08, 2023 1:44am Future Visits Future appointment information is unavailable Referrals to Other Providers Reason for Referral Referral Start Date Provider Provider Contact Information Provider Address Pcp-Kaykay , Md MARTINS Pcp-None , Md MARTINS Future Procedures Procedure Name Ordered Date Scheduled Date Troponin T High Sensitivity May 07, 2023 10:43pm May 08, 2023 1:44am Troponin T High Sensitivity May 07, 2023 10:43pm May 07, 2023 11:44pm EKG ED Electrocardiogram May 07, 2023 10: 43pm May 07, 2023 10:43pm Peripheral IV Insert/Manage May 07, 2023 10:43pm May 07, 2023 10:43pm Future Medications Future medication information is unavailable Patient Instructions ED Alcohol Intoxication ED Alcohol Intoxication Progress Note Author Siddhartha Dunlap [facility] May 08, 2023 8:21am Note Date/Time May 08, 2023 12:04am [facility] er [address] [place] [address] Emergency Department Document Signed with Vivienne Patient: YINA BISHOP Medical Record#: [id number] : 1955 Acct:[id number] Age/Sex: 67 / M Admit/Reg Date: 05/07/23 Loc: ED.EM Room: Report Number: [id number]: Fidencio Cordero Jr, MD ADDENDUM I assumed care from Dr. Slaughter at 07:00. Unfortunately, this patient could not be admitted to [facility] due to issues with insurance coverage. He was discharged with other resources for detox and return precautions for any new or worsening symptoms. Addendum Dictated By: Siddhartha Dunlap MD Addendum Signed By: <Electronically signed by Siddhartha Dunlap MD> 05/08/23820 Addendum Cosigned By: DD/ TD/TT: 05/08/23 Arrival - Arrival ED Triage Note: Patient BIBA from home requesting etoh detox and psych eval. Last drink this afternoon. +SI w/o plan. No HI. No AH/VH. History of Present Illness Nursing note reviewed: Yes Source: patient, old records Exam/History Limitations: no limitations Primary Care Provider: Pcp-Md Kaykay Chief Complaint: Psychiatric Symptoms History of Present Illness: Patient is a 67-year-old male with a history of alcoholism and atrial fibrillation. Patient states he just spent 10 days at [facility] hospital for alcohol withdrawal and atrial fibrillation. He states he would difficulty walking with the atrial fibrillation. I have no records and patient is unable to give him anywhere history for why he was in for 10 full days. He denies he would DTs or seizures. He states that the he is now here because he felt palpitations earlier. And he wants detox. On arrival to the ER he did mentioned suicidal ideation to the triage nurse. I talked to him after he had been here for an hour to and was more sober. At that time he said he is not suicidal. He states that he feels down at times which is maybe why he said whenhe did but he does not feel at all suicidal at this time. He is no prior history of suicide attempt and he is not been hospitalized for psychiatric illness. Patient does not take a blood thinner for his atrial fibrillation. Hestates the doctors were worried about his fall history with his alcoholism. He does take metoprolol but no blood thinners. He note palpitations no chest pain. He is interested in detox. (Gil Angel,Fidencio) Allergies/Adverse Reactions: No Known Drug Allergies Allergy (Verified 05/07/23 21:37) Past Medical/Surgical History Medical History: Medical History (Last Updated 09/09/21 @ 21:54 by Lynn Cardoso) Afib (Medical) I48.91 Alcohol abuse (Social Hx) F10.10 Family/Social History - Social History Living Situation: Private Home Do you drink alcohol: Yes Current or Hx of Recreational Drug use: No Physical Exam General Appearance: NAD Head: Atraumatic, Normocephalic Eyes: Conjunctiva normal Mouth/Throat: Pharynx normal Neck: Non-tender Respiratory: No respiratory distress, Lungs clear, No accessory muscle use Cardiovascular: No Murmurs, No S3/S4 gallops, No Rubs, Irreg/irreg Abdominal: Soft, Non-tender, Non-distended, Normal bowel sounds Extremity/Musculoskeletal: Non-tender Skin: Warm Psych: Anxious Neuro: Nonfocal, Motor grossly normal, Sensory grossly normal, Speech fluent, CN2-12 intact Triage Vital Signs: Temperature 98.1 F 05/07/23 21:33 Temperature Source Oral 05/07/23 21:33 Pulse Rate 109 H 05/07/23 21:33 Respiratory Rate 16 05/07/23 21:33 Blood Pressure 104/75 05/07/23 21:33 Blood Pressure Source Automatic Cuff 05/07/23 21:33 Blood Pressure Mean 84 05/07/23 21:33 O2 Sat by Pulse Oximetry 100 05/07/23 21:33 Oxygen Delivery Method Room Air 05/07/23 21:33 Results/Orders - Results and Orders EKG #1: Rhythm (afib), QRS (nl), Non specific ST T Wave Chg, Other (normal axis,no acute ischemic changes ) - Results and Orders Medications Ordered: Discontinued Medications Sodium Chloride () 1,000 mls @ 999 mls/hr IV .Q1H1M ONE Stop: 05/07/23 23:47 Last Admin: 05/07/23 23:30 Dose: 999 mls/hr Documented By: MICHAEL Lorazepam (Lorazepam 2 Mg/Ml Inj) 1 mg IV ONCE ONE Stop: 05/07/23 22:48 Last Admin: 05/07/23 23:30 Dose: 1 mg Documented By: MICHAEL EKG Orders: EKG Orders 05/07/23 22:43 EKG ED Electrocardiogram Stat MDM/COURSE Vital Signs Temperature 98.1 F 05/07/23 21:33 Pulse Rate 109 H 05/07/23 21:33 Respiratory Rate 16 05/07/23 21:33 Blood Pressure 104/75 05/07/23 21:33 O2 Sat by Pulse Oximetry 100 05/07/23 21:33 Temperature 98.1 F 05/07/23 21:33 Pulse Rate 109 H 05/07/23 21:33 Respiratory Rate 16 05/07/23 21:33 Blood Pressure 104/75 05/07/23 21:33 O2 Sat by Pulse Oximetry 100 05/07/23 21:33 - [facility] Medical decision making narrative: 05/08/23 00:04 Patient presents with palpitations and intoxication. Differential includes holiday heart, chronic AFib, alcohol withdrawal, drug toxicity such as stimulantor cocaine. Patient is intoxicated on arrival. I did give him Ativan for withdrawal symptoms as well as a L of fluid. I will slow his heart rate down with 5 of Lopressor now. But his rate is only at 01:07 on arrival in the EKG. He does not take Eliquis nor will he because of his frequent falls his alcohol is him. I think that is a reasonable choice. He will be high risk to get intracranial bleed if he were to take Eliquis. Because his atrial fibrillation is is well controlled on his metoprolol I do not feel he needs to be admitted. He would be stable to go to the detox service [facility] if they have an availablebed. Chronic conditions affecting his care include his atrial fibrillation and his alcoholism. I reviewed his EKG independently. We will check tropes routinelabs in his alcohol level. He should be able to go to [facility] if they have a bed. Additionally while he did mentioned suicidal ideation on triage I talked to himclearly about this when he was sober. He is adamant he is not suicidal just transiently depressed. He is fine for either discharge or the detox unit. (Fidencio Cordero Jr) Discharge Plan - Discharge Clinical Impression: Alcoholic intoxication, Atrial fibrillation Disposition: Still in ED Referrals: Pcp-Md Mccracken MD [Primary Care Provider] - Print Language: [place] - Discharge Data Time Seen by Provider: 05/07/23 22:24 Dictated By: Fidencio Cordero Jr, MD Signed By: Fidencio Cordero Jr, MD 05/08/23 0008 DD/ 58 TD/TT: 05/07/232358 Personal Lines Sales Executive: GEMMAJuliana cc: YOLIS Martins Pcp-MD Kaykay
--- OUTSIDE RECORDS SUMMARY | 2024-03-30 17:05 | XMS_ITS | Continuity of Care Document ---
Author Organization [facility] Address [address] [place] [address] Phone Care Team Providers Care Freelance Graphic Designer Name Role Phone PcpMD Eliezer Braxton Primary Care Provider MD Siddhartha Stroud Emergency Provider Unav [facility] MD Fidencio Cordero Jr Emergency Provider [phone] MD Kan Armstrong Emergency Provider [phone] MD Eduarda Davis Attending Provider Care Teams Patient Care Team Team Status: Active Member Role Status Dates Md Myrtle MD Primary Care Provider Active Visit Care Team [...] May 07, 2023 End: May 08, 2023 Visit Care Team Team Status: Active Member Role Status Dates Md Myrtle MD Primary Care Provider Active St art: May 27, 2023 Kan Armstrong MD Emergency Provider Active Start: May 27, 2023 Eduarda Davis MD Admit Provider, A ttending Provider Active Start: May 27, 2023 Chief Complaint and Reason for Visit Chief Complaint INTOXICATION AA Reason for Visit A-fib Alcohol abuse Cellulitis of left foot Hypokalemia Hypomagnesemia Allergies, Adverse Reactions, Alerts No known allergies Social History Smoking Status Status Start Date End Date Date of Observa tion Unknown if ever smoked Decem 2022 6:25pm Observation Status Observation Response Date of Response Living Situation Apartment May 08, 2023 3:21am Living Situation Homeless May 27, 2023 6:25pm Additional Data Assigned Sex Male Problems Active Problems Medical Problem Onset Date Status Alcohol abuse Active A-fib Active Cellulitis of left foot Active Hypokalemia Active Hypomagnesemia Active Inactive/Resolved Problems Medical Problem Onset Date Status Alcohol intoxication Resolved Atrial fibrillation Resolved Weakness Resolved Procedures Procedure Date Performed Status EKG Electrocardiogram May 04, 2023 6:28pm active EKG ED Electrocardiogram May 07, 2023 10: 43pm active EKG ED Electrocardiogram May 27, 2023 12: 56pm active XR chest 2V May 27, 2023 12:56pm comp leted XR ankle LT min 3V May 27, 2023 12:57pm c ompleted XR foot LT min 3V May 27, 2023 12:57pm co mpleted US venous duplex LE LT May 27, 2023 3:12p m completed Relevant Diagnostic Tests and/or Laboratory Data Laboratory Results Test Date/Time Result Interpretation Reference Range Result Comment Performing Site White Blood Count May 07, 2023 11:30pm 7.6 X10 3/uL 4.5-11.0 [facility] [id number] [address] [place] [address] 15166 White Blood Count May 27, 2023 1:15pm 7.3 X10 3/uL 4.5-11.0 [facility] [id number] [address] [place] [address] 37751 Red Blood Count May 07, 2023 11:30pm 3.98 X10 6/uL 4.00-5.50 [facility] [id number] [address] [place] [address] 83443 Red Blood Count May 27, 2023 1:15pm 3.20 X10 6/uL 4.00-5.50 [facility] [id number] [address] [place] [address] 04529 Hemoglobin May 07, 2023 11:30pm 13.6 g/dl 12.0-17.0 [facility] [id number] [address] [place] [address] 72683 Hemoglobin May 27, 2023 1:15pm 10.7 g/dl 12.0-17.0 [facility] [id number] [address] [place] [address] 36473 Hematocrit May 07, 2023 11:30pm 40.1 % 35.0-50.0 [facility] [id number] [address] [place] [address] 47116 Hematocrit May 27, 2023 1:15pm 33.1 % 35.0-50.0 [facility] [id number] [address] [place] [address] 75830 Mean Corpuscular Volume May 07, 2023 11:30pm 100.8 fl 80.0-100.0 [facility] [id number] [address] [place] [address] 89066 Mean Corpuscular Volume May 27, 2023 1:15pm 103.4 fl 80.0-100.0 [facility] [id number] [address] [place] [address] 73558 Mean Corpuscular Hemoglobin May 07, 2023 11:30pm 34.2 pg 27.0-34.0 [facility] [id number] [address] [place] [address] 70728 Mean Corpuscular Hemoglobin May 27, 2023 1:15pm 33.4 pg 27.0-34.0 [facility] [id number] [address] [place] [address] 61291 Mean Corpuscular Hemoglobin Concent May 07, 2023 11:30pm 33.9 g/dl 31.0-36.0 [facility] [id number] [address] [place] [address] 43117 Mean Corpuscular Hemoglobin Concent May 27, 2023 1:15pm 32.3 g/dl 31.0-36.0 [facility] [id number] [address] [place] [address] 21415 Red Cell Distribution Width May 07, 2023 11:30pm 13.6 % 11.5-15.0 [facility] [id number] [address] [place] [address] 55113 Red Cell Distribution Width May 27, 2023 1:15pm 13.2 % 11.5-15.0 [facility] [id number] [address] [place] [address] 34132 Platelet Count May 07, 2023 11:30pm 323 X10 3/uL 150-400 [facility] [id number] [address] [place] [address] 86157 Platelet Count May 27, 2023 1:15pm 334 X10 3/uL 150-400 [facility] [id number] [address] [place] [address] 41420 Immature Granulocyte % (Auto) May 27, 2023 1:15pm 0.4 % [facility] [id number] [address] [place] [address] 46164 Neutrophils (%) (Auto) May 07, 2023 11:30pm Not Reportable [facility] [id number] [address] [place] [address] 35635 Neutrophils (%) (Auto) May 27, 2023 1:15pm 73.3 % [facility] [id number] [address] [place] [address] 26476 Lymphocytes (%) (Auto) May 07, 2023 11:30pm Not Reportable [facility] [id number] [address] [place] [address] 95053 Lymphocytes (%) (Auto) May 27, 2023 1:15pm 11.6 % [facility] [id number] [address] [place] [address] 71784 Monocytes (%) (Auto) May 07, 2023 11:30pm Not Reportable [facility] [id number] [address] [place] [address] 22298 Monocytes (%) (Auto) May 27, 2023 1:15pm 13.8 % [facility] [id number] [address] [place] [address] 48811 Eosinophils (%) (Auto) May 07, 2023 11:30pm Not Reportable [facility] [id number] [facility] [facility] 14204 Eosinophils (%) (Auto) May 27, 2023 1:15pm 0.6 % [facility] [id number] [address] [place] [address] 75424 Basophils (%) (Auto) May 07, 2023 11:30pm Not Reportable [facility] [id number] [address] [place] [address] 53058 Basophils (%) (Auto) May 27, 2023 1:15pm 0.3 % [facility] [id number] [address] [place] [address] 86114 Immature Granulocyte # (Auto) May 27, 2023 1:15pm 0.03 X10 3/uL 0.00-0.09 [facility] [id number] [address] [place] [address] 99221 Neutrophils # (Auto) May 07, 2023 11:30pm Not Reportable [facility] [id number] [address] [place] [address] 58015 Neutrophils # (Auto) May 27, 2023 1:15pm 5.3 X10 3/uL 1.5-7.8 [facility] [id number] [address] [place] [address] 17544 Lymphocytes # (Auto) May 07, 2023 11:30pm Not Reportable [facility] [id number] [address] [place] [address] 17408 Lymphocytes # (Auto) May 27, 2023 1:15pm 0.8 X10 3/uL 1.0-4.8 [facility] [id number] [address] [place] [address] 34053 Monocytes # (Auto) May 27, 2023 1:15pm 1.0 X10 3/uL 0.0-0.8 [facility] [id number] [address] [place] [address] 60617 Eosinophils # (Auto) May 27, 2023 1:15pm 0.0 X10 3/uL 0.0-0.5 [facility] [id number] [address] [place] [address] 56444 Basophils # (Auto) May 07, 2023 11:30pm Not Reportable [facility] [id number] [address] [place] [address] 96266 Basophils # (Auto) May 27, 2023 1:15pm 0.0 X10 3/uL 0.0-0.2 [facility] [id number] [address] [place] [address] 22402 Neutrophils % (Manual) May 07, 2023 11:30pm 73 % [facility] [id number] [address] [place] [address] 33028 Band Neutrophils % (Manual) May 07, 2023 11:30pm 0 % 0-6 [facility] [id number] [address] [place] [address] 73140 Lymphocytes % (Manual) May 07, 2023 11:30pm 10 % [facility] [id number] [address] [place] [address] 22590 Reactive Lymphocytes % (Manual) May 07, 2023 11:30pm 0 % [facility] [id number] [address] [place] [address] 98643 Monocytes % (Manual) May 07, 2023 11:30pm 14 % [facility] [id number] [address] [place] [address] 01826 Eosinophils % (Manual) May 07, 2023 11:30pm 2 % [facility] [id number] [address] [place] [address] 82845 Basophils % (Manual) May 07, 2023 11:30pm 0 % [facility] [id number] [address] [place] [address] 61369 Metamyelocyte s % (manual) May 07, 2023 11:30pm 0 % 0-1 [facility] [id number] [address] [place] [address] 13672 Myelocytes % (Manual) May 07, 2023 11:30pm 1 % 0-0 [facility] [id number] [address] [place] [address] 62669 Promyelocytes % (Manual) May 07, 2023 11:30pm 0 % 0-0 [facility] [id number] [address] [place] [address] 04746 Blast Cells % (Manual) May 07, 2023 11:30pm 0 % 0-0 [facility] [id number] [address] [place] [address] 48820 Plasma Cells % (manual) May 07, 2023 11:30pm 0 0-0 [facility] [id number] [address] [place] [address] 89330 Neutrophils # (Manual) May 07, 2023 11:30pm 5.5 X10 3/uL 1.5-7.8 [facility] [id number] [address] [place] [address] 54385 Lymphocytes # (Manual) May 07, 2023 11:30pm 0.8 X10 3/uL 1.0-4.8 [facility] [id number] [address] [place] [address] 37865 Monocytes # (Manual) May 07, 2023 11:30pm 1.1 X10 3/uL 0.0-0.8 [facility] [id number] [address] [place] [address] 54197 Eosinophils # (Manual) May 07, 2023 11:30pm 0.2 X10 3/uL 0.0-0.5 [facility] [id number] [address] [place] [address] 38947 Basophils # (Manual) May 07, 2023 11:30pm 0.0 X10 3/uL 0.0-0.2 [facility] [id number] [address] [place] [address] 16981 Platelet Estimate May 07, 2023 11:30pm Adequate [facility] [id number] [address] [place] [address] 70257 Macrocytosis May 07, 2023 11:30pm Slight [facility] [id number] [address] [place] [address] 03438 Ovalocytes May 07, 2023 11:30pm Slight [facility] [id number] [address] [place] [address] 34221 Nucleated Red Blood Cells % May 07, 2023 11:30pm 0.0 /100 WBC 0.0-0.0 [facility] [id number] [address] [place] [address] 00686 Nucleated Red Blood Cells % May 27, 2023 1:15pm 0.0 /100 WBC 0.0-0.0 [facility] [id number] [address] [place] [address] 03774 Urine Color May 27, 2023 3:30pm Yellow Yellow [facility] [id number] [address] [place] [address] 79200 Urine Clarity May 27, 2023 3:30pm Clear Clear [facility] [id number] [address] [place] [address] 52232 Urine pH May 27, 2023 3:30pm 6.5 5.0-8.0 [facility] [id number] [address] [place] [address] 43397 Urine Specific [place] May 27, 2023 3:30pm 1.011 1.005-1.03 0 [facility] [id number] [address] [place] [address] 44929 Urine Blood May 27, 2023 3:30pm Negative mg/dL Negative [facility] [id number] [address] [place] [address] 18492 Urine Protein May 27, 2023 3:30pm Negative mg/dL Negative [facility] [id number] [address] [place] [address] 85955 Urine Glucose (UA) May 27, 2023 3:30pm Negative mg/dl Negative [facility] [id number] [address] [place] [address] 99070 Urine Ketones May 27, 2023 3:30pm Negative mg/dL Negative [facility] [id number] [address] [place] [address] 70336 Urine Nitrate May 27, 2023 3:30pm Negative Negative [facility] [id number] [address] [place] [address] 27466 Urine Bilirubin May 27, 2023 3:30pm Negative mg/dL Negative [facility] [id number] [address] [place] [address] 67720 Urine Urobilinogen May 27, 2023 3:30pm 1.0 E.U./dL Normal [facility] [id number] [address] [place] [address] 61149 Urine Leukocyte Esterase May 27, 2023 3:30pm Negative mg/dL Negative [facility] [id number] [address] [place] [address] 74325 Sodium Level May 07, 2023 11:30pm 134 mmol/L 137-146 [facility] [id number] [address] [place] [address] 64111 Sodium Level May 27, 2023 1:15pm 142 mmol/L 137-146 [facility] [id number] [address] [place] [address] 79951 Potassium Level May 07, 2023 11:30pm 4.0 mmol/L 3.5-5.3 Specimen hemolyzed, results affected [facility] [id number] [address] [place] [address] 84162 Potassium Level May 27, 2023 1:15pm 3.0 mmol/L 3.5-5.3 Specimen hemolyzed, results affected [facility] [id number] [address] [place] [address] 20033 Chloride Level May 07, 2023 11:30pm 96 mmol/L 98-107 [facility] [id number] [address] [place] [address] 77229 Chloride Level May 27, 2023 1:15pm 112 mmol/L 98-107 [facility] [id number] [address] [place] [address] 68286 Carbon Dioxide Level May 07, 2023 11:30pm 22 mmol/L 23-32 [facility] [id number] [address] [place] [address] 12374 Carbon Dioxide Level May 27, 2023 1:15pm 18 mmol/L 23-32 [facility] [id number] [address] [place] [address] 68490 Anion Gap May 07, 2023 11:30pm 16 mmol/L 5-15 [facility] [id number] [address] [place] [address] 79457 Anion Gap May 27, 2023 1:15pm 12 mmol/L 5-15 [facility] [id number] [address] [place] [address] 83712 Blood Urea Nitrogen May 07, 2023 11:30pm 8 mg/dl - [facility] [id number] [address] [place] [address] 64612 Blood Urea Nitrogen May 27, 2023 1:15pm 4 mg/dl 11-09 [facility] [id number] [address] [place] [address] 83010 Creatinine May 07, 2023 11:30pm 0.6 mg/dL 0.6-1.4 [facility] [id number] [address] [place] [address] 61487 Creatinine May 27, 2023 1:15pm 0.4 mg/dL 0.6-1.4 [facility] [id number] [address] [place] [address] 81345 Estimated Creatinine Clearance May 07, 2023 11:30pm Oceanographer Geological Unable to Calculate CRCL,Ht and/or Wt missing [facility] [id number] [address] [place] [address] 96312 Estimated Creatinine Clearance May 27, 2023 1:15pm Oceanographer Geological Unable to Calculate CRCL,Ht and/or Wt missing [facility] [id number] [address] [place] [address] 10630 Estimat Glomerular Filtration Rate May 07, 2023 11:30pm 106 >90 Reported eGFR is based on the CKD-EPI 2020 equation that does not use a race coefficient. Additional information can be found at:[id number] [email or web address] ([email or web address]) [facility] [id number] [address] [place] [address] 82626 Estimat Glomerular Filtration Rate May 27, 2023 1:15pm 120 >90 Reported eGFR is based on the CKD-EPI 2020 equation that does not use a race coefficient. Additional information can be found at:[id number]_[email or web address] [email or web address] _[email or web address] ([email or web address]) [facility] [id number] [address] [place] [address] 50918 BUN/Creatinin e Ratio May 07, 2023 11:30pm 13.3 10.0-20.0 [facility] [id number] [address] [facility] 59564 BUN/Creatinin e Ratio May 27, 2023 1:15pm 10.0 10.0-20.0 [facility] [id number] [address] [facility] 82593 Glucose Level May 07, 2023 11:30pm 102 mg/dL 70-100 [facility] [id number] [address] [facility] 61984 Glucose Level May 27, 2023 1:15pm 134 mg/dL 70-100 [facility] [id number] [address] [place] [address] 95742 Calcium Level May 07, 2023 11:30pm 9.5 mg/dl 8.6-10.3 [facility] [id number] [address] [place] [address] 11346 Calcium Level May 27, 2023 1:15pm 7.0 mg/dl 8.6-10.3 [facility] [id number] [address] [place] [address] 65610 Phosphorus Level May 07, 2023 11:30pm 3.2 mg/dL 2.5-4.5 [facility] [id number] [address] [place] [address] 38802 Phosphorus Level May 27, 2023 1:15pm 2.6 mg/dL 2.5-4.5 [facility] [id number] [address] [place] [address] 51385 Magnesium Level May 07, 2023 11:30pm 2.0 mg/dL 1.8-2.5 [facility] [id number] [address] [place] [address] 99228 Magnesium Level May 27, 2023 1:15pm 1.0 mg/dL 1.8-2.5 [facility] [id number] [address] [place] [address] 63665 Total Bilirubin May 07, 2023 11:30pm 0.5 mg/dl <1.1 [facility] [id number] [address] [place] [address] 35257 Total Bilirubin May 27, 2023 1:15pm 0.3 mg/dl <1.1 [facility] [id number] [address] [place] [address] 97368 Aspartate Amino Transf (AST/SGOT) May 07, 2023 11:30pm 80 U/L 15-41 Specimen hemolyzed, results affected, evaluate with caution. [facility] [id number] [address] [place] [address] 57326 Aspartate Amino Transf (AST/SGOT) May 27, 2023 1:15pm 27 U/L 15-41 Specimen hemolyzed, results affected, evaluate with caution. [facility] [id number] [address] [place] [address] 45539 Alanine Aminotransfer ase (ALT/SGPT) May 07, 2023 11:30pm 40 U/L 14-63 Gross hemolysis, evaluate with caution [facility] [id number] [address] [place] [address] 73951 Alanine Aminotransfer ase (ALT/SGPT) May 27, 2023 1:15pm 7 U/L 14-63 [facility] [id number] [address] [place] [address] 78303 Troponin T High Sensitivity May 07, 2023 [...] the UMM score for the inpatient setting). [facility] [id number] [address] [place] [address] 98587 Troponin T High Sensitivity May 27, 2023 3:57pm 18 ng/L <13 Normal range: Females <9 ng/L [...] the UMM score for the inpatient setting). [facility] [id number] [address] [place] [address] 46877 Total Protein May 07, 2023 11:30pm 7.5 g/dL 6.4-8.3 [facility] [id number] [address] [place] [address] 82877 Total Protein May 27, 2023 1:15pm 5.5 g/dL 6.4-8.3 [facility] [id number] [address] [place] [address] 48771 Albumin May 07, 2023 11:30pm 3.7 g/dl 4.0-5.0 [facility] [id number] [address] [place] [address] 40807 Albumin May 27, 2023 1:15pm 2.4 g/dl 4.0-5.0 [facility] [id number] [address] [place] [address] 25810 Albumin/Globu susannah Ratio May 07, 2023 11:30pm 1.0 1.0-2.6 [facility] [id number] [address] [place] [address] 65383 Albumin/Globu susannah Ratio May 27, 2023 1:15pm 0.8 1.0-2.6 [facility] [id number] [address] [place] [address] 85709 Alkaline Phosphatase May 07, 2023 11:30pm 92 U/L 40-129 [facility] [id number] [address] [place] [address] Alkaline Phosphatase May 27, 2023 1:15pm 64 U/L 40-129 [facility] [id number] [address] [place] [address] 56850 Urine Amphetamines Screen May 08, 2023 2:57am Negative Negative Amphetamines Cutoff level 1000 ng/mL. [facility] [id number] [address] [place] [address] 88536 Urine Amphetamines Screen May 27, 2023 3:30pm Negative Negative Amphetamines Cutoff level 1000 ng/mL. [facility] [id number] [address] [place] [address] 34408 Urine Methadone Screen May 08, 2023 2:57am Negative Negative Methadone Cutoff level 300 ng/mL [facility] [id number] [address] [place] [address] 40538 Urine Methadone Screen May 27, 2023 3:30pm Negative Negative Methadone Cutoff level 300 ng/mL [facility] [id number] [address] [place] [address] 84021 Urine Oxycodone Screen May 08, 2023 2:57am Negative Negative Oxycontin/Oxyco done Cutoff level 100 ng/mL [facility] [id number] [address] [place] [address] Urine Oxycodone Screen May 27, 2023 3:30pm Negative Negative Oxycontin/Oxyco done Cutoff level 100 ng/mL [facility] [id number] [address] [place] [address] 28888 Urine Buprenorphine Screen May 08, 2023 2:57am Negative Negative Buprenorphine Cutoff level 5 ng/mL [facility] [id number] [facility] [facility] 35186 Urine Buprenorphine Screen May 27, 2023 3:30pm Negative Negative Buprenorphine Cutoff level 5 ng/mL [facility] [id number] [address] [place] [address] 48255 Urine Opiates Screen May 08, 2023 2:57am Negative Negative Opiate Cutoff level 300 ng/mLOxycontin/ Oxycodone is not detected below the threshold of20,000 ng/mL [facility] [id number] [facility] [facility] 77087 Urine Opiates Screen May 27, 2023 3:30pm Negative Negative Opiate Cutoff level 300 ng/mLOxycontin/ Oxycodone is not detected below the threshold of20,000 ng/mL [facility] [id number] [address] [place] [address] 53942 Urine Fentanyl Screen May 08, 2023 2:57am Negative Negative Fentanyl Cutoff level 2.0 ng/mL [facility] [id number] [address] [place] [address] 77808 Urine Fentanyl Screen May 27, 2023 3:30pm Negative Negative Fentanyl Cutoff level 2.0 ng/mL [facility] [id number] [address] [place] [address] 53559 Urine Benzodiazepin es Screen May 08, 2023 2:57am Negative Negative Please note that the current method for benzodiazepines may be less sensitive to lorazapam detection than previously. If this result is negative and you are concerned about a false negative result for lorazepam, additional testing is possible. Please contact the laboratory.Phil odiazepine Cutoff level 200 ng/mL [facility] [id number] [address] [place] [address] 54804 Urine Benzodiazepin es Screen May 27, 2023 3:30pm Negative Negative Please note that the current method for benzodiazepines may be less sensitive to lorazapam detection than previously. If this result is negative and you are concerned about a false negative result for lorazepam, additional testing is possible. Please contact the laboratory.Phil odiazepine Cutoff level 200 ng/mL [facility] [id number] [address] [place] [address] 81864 Urine Cocaine Screen May 08, 2023 2:57am Negative Negative Cocaine Cutoff level 300 ng/mL [facility] [id number] [address] [place] [address] 54809 Urine Cocaine Screen May 27, 2023 3:30pm Negative Negative Cocaine Cutoff level 300 ng/mL [facility] [id number] [address] [place] [address] 56312 Urine Cannabinoids Screen May 08, 2023 2:57am Negative Negative THC Cutoff level 50 ng/mLThis report is intended for use in clinical monitoring and management of patients. It is not intended for use in employment related drug testing or court related proceedings. Samples are not routinely tested for adulteration and are assumed to be within the normal physiological pH range of 5 - 8. [facility] [id number] [address] [place] [address] 54375 Urine Cannabinoids Screen May 27, 2023 3:30pm Negative Negative THC Cutoff level 50 ng/mLThis report is intended for use in clinical monitoring and management of patients. It is not intended for use in employment related drug testing or court related proceedings. Samples are not routinely tested for adulteration and are assumed to be within the normal physiological pH range of 5 - 8. [facility] [id number] [address] [place] [address] Serum Alcohol May 07, 2023 11:30pm 170 mg/dl <10 [facility] [id number] [address] [place] [address] Serum Alcohol May 27, 2023 1:15pm 291 mg/dl <10 [facility] [id number] [address] [place] [address] Diagnostic Imaging Reports [facility] May 27, 2023 3:32pm Report Date/Time May 27, 2023 3:37pm [address] [address] Patient Name: YINA BISHOP Medical Record#: [id number] Address: [address] [place] [address] City/State/Zip: [place] [address]: Bud Armstrong MD Insurance: [facility] PCC Re quired /Age/Sex: 1955 67/M Self Pay Admit/Reg Date: 05/27/[address]: OSMEL Elizalde Location: ED.EM/ PCP: PcpMd ELIEZER Braxton Date of Service: 05/27/23 Order (s): XR ankle LT min 3V; XR foot LT min 3V CPT Code: 67614; 96604 Report Number: [id number] Reason for Exam: Atraumatic left ankle pain Chronic pain Frontal oblique lateral views of the left ankle and left foot: Moderate plantar calcaneal spur. Preserved alignment aside from slight flexion deformity of the second toe.. Symmetric mortise. Mild bimalleolar soft tissue swelling lateral greater than medial extending into the forefoot. Very early vascular atherosclerosis. No acute or healing fracture deformities. Impression: Nonspecific soft tissue swelling. Dictated By: Tammy Swan MD 05/27/231529 Signed By: Tammy Swan MD 05/27/231536 TD/TT: 05/27/23 153Tech: [id number] cc: RYAN; PCPNO; SCHLYLE1* Pcp-MD Kaykay; Kan Armstrong MD; OSMEL Elizalde Author Tammy Swan [facility] May 27, 2023 3:34pm Report Date/Time May 27, 2023 3:39pm [address] [address] Patient Name: YINA BISHOP Medical Record#: [id number] Address: [address] [place] [address] City/State/Zip: [place] [address]: Bud Armstrong MD Insurance: [facility] PCC Re quired /Age/Sex: 1955 67/M Self Pay Admit/Reg Date: 05/27/[address]: OSMEL Elizalde Location: ED.EM/ PCP: PcpMd ELIEZER Braxton Date of Service: 05/27/23 Order (s): XR chest 2V CPT Code: 81620 Report Number: [id number] Reason for Exam: Heart palpitations Shortness of breath Frontal lateral chest: Costophrenic sulci are clipped off on the lateral projection. Heart size normal. No active airspace disease. No overt pulmonary edema Impression: No active airspace disease. Dictated By: Tammy Swan MD 05/27/23 153 Signed By: Tammy Swan MD 05/27/23 1539 TD/TT: 05/27/23 153Tech: [id number] cc: RYAN; PCPNO; SCHMI1* PcpMD Irais; Kan Armstrong MD; OSMEL Elizalde Author Radha Johnson [facility] May 27, 2023 4:54pm Report Date/Time May 27, 2023 4:58pm [address] [address] Patient Name: YINA BISHOP Medical Record#: [id number] Address: [address] [place] [address] City/State/Zip: [place] [id number] Attending Dr: Bud Armstrong MD Insurance: [employer] [facility] Re quired /Age/Sex: 1955/67/M Self Pay Admit/Reg Date: 05/27/[address]: OSMEL Elizalde Location: ED.EM/ PCP: PcpMd ELIEZER Braxton Date of Service: 05/27/23 Order (s): US venous duplex LE LT CPT Code: 68346 Report Number: [id number] Reason for Exam: Pain+swelling INDICATION: Left leg pain and swelling. TECHNIQUE: Grayscale, color flow and spectral Doppler evaluation of the left lower extremity deep veins was performed. FINDINGS: The left common femoral vein, proximal, mid and distal femoral vein and popliteal vein are patent and compressible. The calf veins are also unremarkable. Normal augmentation response was noted. There is no evidence of thrombus. IMPRESSION: No evidence of deep vein thrombosis. Dictated By: Radha Johnson MD 05/27/23 1654 Signed By: Radha Gutierrez MD 05/27/231657 TD/TT: 05/27/231653Tech: [id number] cc: RYAN; LATA; DONA* Md Weeks-MD Kaykay; Kan Armstrong MD; OSMEL Elizalde Vital Signs Vital Reading Result Reference Range Collection Date/Time Body Temperature 98.6 [degF] 97.6-99.6 May 042022 6:34pm Heart Rate 84 /min 60-May 04, 2023 6:34pm Respiratory rate 16 /min -May 042022 6:34pm Oxygen saturation by Pulse oximetry 98 % 95-100 May 04, 2023 6:34pm BP Systolic 132 mm[Hg] 90-140 May 04, 2023 6:34pm BP Diastolic 80 mm[Hg] 60-90 May 04, 2023 6:34pm Height 177.8 cm May 08, 2023 3:34am Weight 77.11 kg May 08, 2023 3:34am Body Temperature 98.2 [degF] 97.6-99.6 May 082022 3:19am Heart Rate 107 /min -May 08, 2023 8:22am Respiratory rate 19 /min 06-10May 082022 8:22am Oxygen saturation by Pulse oximetry 98 % 95-100 May 08, 2023 8:22am BP Systolic 114 mm[Hg] 90-140 May 08, 2023 8:22am BP Diastolic 77 mm[Hg] 60-May 08, 2023 8:22am BMI (Body Mass Index) 24.4 kg/m2 [facility] 2022 3:34am Weight 77.00 kg May 27, 2023 12:42pm Body Temperature 98.4 [degF] 97.6-99.6 May 272022 5:42pm Heart Rate 128 /min -May 27, 2023 9:53pm Respiratory rate 16 /min 06-10May 272022 9:53pm Oxygen saturation by Pulse oximetry 99 % 95-100 May 27, 2023 9:53pm BP Systolic 96 mm[Hg] 90-140 May 27, 2023 9:53pm BP Diastolic 69 mm[Hg] 60-90 May 27, 2023 9:53pm Advance Directives Advance Directive Response Recorded Date/ Time Pt has Medical Orders for Li fe Sustaining Tx Form (MOLST)? No May 04, 2023 6:26pm Advance Directives No April 6:26pm Health Care Proxy No May 04, 2023 6:26pm Advance Directives No April 9:30pm Health Care Proxy No May 07, 2023 9:30pm Advance Directives No May 12:39pm Health Care Proxy No May 27, 2023 12:39pm Insurance Providers Guarantor YINA BISHOP Address [address] [place] [address] Contact Info. Home Phone: Payer Policy Id Coverage Id Subscriber's Name Subscriber Id Effective Date Expiration Date [facility] [id number] YINA BISHOP [id number] [facility] P[facility] Required [id number] YINA JOHNSONJUDYRomario [id number] Medicare A&B [id number] YINA BISHOP [id number] Self Pay Self N/A SP Pending Medicaid Apps [id number] YINA JOHNSONWARD [id number] Encounters Encounter Location(s) Arrival/Admit Date Discharge/Depart Date Provider(s) Departed Emergency [facility] May 04, 2023 6:25pm May 04, 2023 7:55pm null Departed Emergency [facility] May 07, 2023 9:30pm May 08, 2023 9:12am null Admitted Inpatient [facility] May 27, 2023 9:08pm Eduarda Davis MD Recent Diagnosis Onset Date A-fib Alcohol abuse Cellulitis of left foot Hypokalemia Hypomagnesemia Assessments Diagnosis Onset Date Resolution Status A-fib acute Alcohol abuse acute Cellulitis of left foot acut e Hypokalemia acute Hypomagnesemia acute Plan of Treatment Future Tests Future scheduled test information is unavailable Pending Tests Test Name Ordered Date Scheduled Date Phosphorus Level May 27, 2023 12:58pm Magnesium Level May 27, 2023 12:58pm Troponin T High Sensitivity May 27, 2023 12:57pm Serum Alcohol May 27, 2023 12:58pm Future Visits Future appointment information is unavailable Referrals to Other Providers Reason for Referral Referral Start Date Provider Provider Contact Information Provider Address Pcp-None , Md MARTINS Pcp-None , Md MARTINS Future Procedures Procedure Name Ordered Date Scheduled Date EKG ED Electrocardiogram May 07, 2023 10:43pm May 07, 2023 10:43pm Peripheral IV Insert/Manage April 10:43pm May 07, 2023 10:43pm Troponin T High Sensitivity May 12:57pm May 27, 2023 12:57pm EKG ED Electrocardiogram May 27, 2023 12:56pm May 27, 2023 12:56pm LIP Documentation of Communi cation with Admitting Physician Acute May 27, 2023 8:55pm May 27, 2023 9:01pm Code Status May 27, 2023 8:55pm May 27, 2023 8:55pm Peripheral IV Insert/Manage May 12:56pm May 27, 2023 12:56pm Continuous Pulse Oximetry May 27, 2023 12:57pm May 27, 2023 12:57pm Future Medications Future medication information is unavailable Patient Instructions ED Alcohol Intoxication ED Alcohol Intoxication
--- OUTSIDE RECORDS SUMMARY | 2024-03-30 17:06 | XMS_ITS | Patient Health Record ---
[place] [facility] [place] [address] [address] Care Team Providers Care Mechanical Facilities Technician Name Role Phone JOSE ANTONIO CALDWELL Unavailable [phone] FOREIGN VALENTIN Unavailable [phone] Reason For Referral No Information Problems Problem Type SNOMED Code ICD Code Onset Dates Problem Status W/U Status Risk Notes Problem 327214400 Scabies (B86) Active confirmed Problem 65182527 Unspecified convulsions (R56.9) Active confirmed Problem 450204938 Elevated liver enzymes (R74.8) Active confirmed Problem 4472092647 Right shoulder pain, unspecified chronicity (M25.511) Active confirmed Problem 601112633 Chronic a-fib (I48.20) Active confirmed Problem 070577346 Alcohol use, unspecified with withdrawal, uncomplicated (F10.930) Active confirmed Problem 05264849 Homelessness (Z59.00) Active confirmed Problem 61804948299134743 Cellulitis of right wrist (L03.113) Active confirmed Problem 9905332 Alcohol use disorder (F10.90) Active confirmed Vital Signs Heart Rate 66 /min 07/19/2023 Temperature 97.9 degrees Fahrenheit 07/19/2023 Respiratory Rate 18 /min 07/19/2023 Blood pressure diastolic 71 mm Hg 07/19/2023 Oximetry 96 % 07/19/2023 Blood pressure systolic 118 mm Hg 07/19/2023 Encounters Encounter Location Date Provider Diagnosis [facility] [address] [address] 07/10/2023 FOREIGN VALENTIN Unspecified convulsions R56.9 ; Alcohol use disorder F10.90 ; Chronic a-fib I48.20 ; Scabies B86 ; Cellulitis of right wrist L03.113 and Homelessness Z59.00 [facility] [address] [address] 07/12/2023 MAGOBA JAVI Alcohol use, unspecified with withdrawal, uncomplicated F10.930 ; Chronic a-fib I48.20 and Scabies B86 [address] [address] 07/13/2023 FOREIGN WEINREB Scabies B86 ; Alcoho l use, unspecified with withdrawal, uncomplicated F10.930 and Elevated liver enzymes R74.[address] [address] 07/17/2023 FOREIGN WEINREB Right shoulder pain, unspecified chronicity M25.511 ; Alcohol use disorder F10.90 ; Scabies B86 and Elevated liver enzymes R74.[address] [address] 07/19/2023 MAGOBA JAVI Elevated liver enzym es R74.8 and Scabies B86 Assessments Encounter Date Diagnosis (ICD Code) Assessment Notes Treatment Notes Treatment Clinical Notes 07/10/2023 Unspecified convulsions (ICD-10 - R56.9) 07/12/2023 Chronic a-fib (ICD-10 - I48.20) HR WNL, Cont with Toprol 07/12/2023 Alcohol use, unspecified with withdrawal, uncomplicated (ICD-10 - F10.930) Will monitor any withdrawal symptoms and monitor 07/13/2023 Scabies (ICD-10 - B86) 07/10/2023 Alcohol use disorder (ICD-10 - F10.90) 07/13/2023 Alcohol use, unspecified with withdrawal, uncomplicated (ICD-10 - F10.930) 07/17/2023 Right shoulder pain, unspecified chronicity (ICD-10 - M25.511) 07/17/2023 Alcohol use disorder (ICD-10 - F10.90) 07/19/2023 Scabies (ICD-10 - B86) Reports new skin itchiness. cont with topical treatment and add PRN Benadryl x 1 07/19/2023 Elevated liver enzymes (ICD-10 - R74.8) Will follow labs closely 07/17/2023 Scabies (ICD-10 - B86) 07/12/2023 Scabies (ICD-10 - B86) cont with topical treatment and monitor 07/13/2023 Elevated liver enzymes (ICD-10 - R74.8) 07/10/2023 Chronic a-fib (ICD-10 - I48.20) 07/10/2023 Scabies (ICD-10 - B86) 07/17/2023 Elevated liver enzymes (ICD-10 - R74.8) 07/10/2023 Cellulitis of right wrist (ICD-10 - L03.113) 07/10/2023 Homelessness (ICD-10 - Z59.00) 07/10/2023 Other Alcohol use disorder with recent seizures. Plan: He is out of the DT period. He will continue with the vitamins per the hospital. He needs conditioning secondary to reduced strength and endurance from his hospitalization and [facility] is being involved. He should follow up in an alcohol use program after discharge. Homeless situation. Plan: [facility] will address. He will probably be discharged back to a long term unless they can find housing for him. A-Fib. Plan: He is not an anticoagulation candidate secondary to alcohol use and high fall risk. We will continue him with his rate controlling medications. Question of scabies. Plan: He should have another treatment cycle next week. Wrist cellulitis. Plan: He will continue Augmentin. 07/13/2023 Other Question of scabies. Plan: He will have the permethrin second treatment on 07/16/2023. Alcohol use disorder. Plan: He continues to require some rehab to regain strength and endurance. [facility] should be involved to try to set him up with an outpatient program as this unfortunately has been a chronic issue for him. Elevated liver function test, most likely associated with his alcohol use. Plan: We will repeat his laboratories again next week. 07/17/2023 Other Right shoulder pain. Plan: We [...] laboratories later this week. Plan Of Treatment No Information Insurance Providers Payer Name Payer Address Payer Phone Subscriber Number Group Number Insured Name Patient Relationship to Insured Coverage Start Date Coverage End Date Medicare Of [place] [address] [place] [id number] Carl Rios Self - patient is the insured Medical (General) History Medical History History ICD Code His past medical history is significant pretty much for: Alcohol abuse. Chronic A-Fib, not on anticoagulation. Now the question of choledocholithiasis. He also has fatty infiltration of his liver.
[2024-03-30 17:07] VITALS: BP 140/97; PULSE 91; RESP 20; TEMP 36.9; O2SAT 98
[2024-03-30] MEDS: PHENobarbitaL sodium 130 MG/ML VIAL IM Q3Hx2 219 MG IM (17:28)
[2024-03-30] MEDS: Enoxaparin Sodium 40 MG/0.4 ML SYRINGE SUBCUT (17:31)
[2024-03-30 20:00] VITALS: BP 149/95; PULSE 103; RESP 21; TEMP 36.7; O2SAT 98
[2024-03-31] VITALS (8 sets, daily range): BP systolic 122–149; BP diastolic 82–98; PULSE 84–98; RESP 14–20; TEMP 36.3–37.4; O2SAT 97–99
[2024-03-31] MEDS: PHENobarbitaL sodium 130 MG/ML VIAL IM Q3Hx2 219 MG IM (00:20)
[2024-03-31] MEDS: Acetaminophen 325 MG TABLET 650 MG PO (04:21)
[2024-03-31 07:22] LABS: Alanine Aminotransferase 39 U/L (0-40); Albumin Level 3.7 g/dL (3.5-5.0); Alkaline Phosphatase 121 U/L (39-117); Anion Gap 13 (12-20); Aspartate Amino Transferase 43 U/L (5-37); Bilirubin Total 1.1 mg/dL (0.0-1.0); Blood Urea Nitrogen 5 mg/dL (9-16); Calcium 9.4 mg/dL (8.4-10.2); Carbon Dioxide 24 mmol/L (22-29); Chloride 102 mmol/L (96-108); Creatinine Clr Calc Pharmacy 108.9; Estimated Glomerular Filt Rate > 60; Glucose Random 106 mg/dL (60-115); Potassium 3.5 mmol/L (3.3-5.1); Sodium 135 mmol/L (135-145); Total Protein 6.9 g/dL (6.5-8.0)
[2024-03-31 07:23] LABS: Hematocrit 36.9 % (42.0-52.0); Hemoglobin 12.8 g/dl (14.0-18.0); Mean Corpuscular HGB Conc 34.7 g/dl (31.0-36.0); Mean Corpuscular Hemoglobin 34.1 pg (27.0-33.0); Mean Corpuscular Volume 98.4 fL (80.0-98.0); Platelet Count 305 X10*3/uL (160-400); Red Blood Count 3.75 X10*6/uL (4.60-5.80); Red Cell Distribution Width 14.1 % (11.0-16.0); White Blood Count 5.5 X10*3/uL (4.8-10.8)
[2024-03-31] MEDS: Thiamine HCL 100 MG TABLET PO (08:47)
[2024-03-31] MEDS: PHENobarbitaL 15 MG TABLET 45 MG PO ×2 (08:47→19:37)
[2024-03-31] MEDS: Metoprolol Succinate ER 100 MG TAB.ER.24H 200 MG PO (08:47)
[2024-03-31] MEDS: 0.9 % Sodium Chloride Flush 3 ML SYRINGE IVFLUSH ×2 (08:48→16:49)
--- NOTE | 2024-03-31 09:30 | MHC.CM.PN ---
CM met with Patient at bedside and addressed IMM with him;original was given to Patient and a copy has been placed on the chart. 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 Home self care vs Recovery Team intervention r/t ETOH is the tentative goal and CM has initiated and will follow for dc planning. PCP is Dr. Jose Angel Zayas in [facility] and Patient's Brother/Meliton will transport to home.
[2024-03-31 10:17] LABS: Magnesium 1.6 mg/dL (1.6-2.6)
[2024-03-31] MEDS: oxyCODONE HCl Immed Release 5 MG TABLET PO ×2 (11:17→19:37)
--- NOTE | 2024-03-31 11:18 | P.PNIM_ITS ---
Subjective Subjective Date of Service: 03/31/24 Interval History: seen and examined feeling more lucid this AM; reports last drink 24 hours b4 ED arrival reports prior seizures -- last one 3 months ago reports left sided rib pain -- secondary to rib fx (per his history) Review of Systems Negative except HPI/interval history. Physical Exam 2 Vital Signs: Vital Signs: Last Vital Signs Temp 98.0 F 03/31/24 07:48 Pulse 84 03/31/24 08:47 Resp 18 03/31/24 07:48 BP 149/97 H 03/31/24 08:47 Pulse Ox 99 03/31/24 07:48 O2 Del Method Room Air 03/31/24 07:48 BMI result Body Mass Index 25.6 Const: Other: General - no acute distress, appears comfortable Cardiovascular - regular rate and rhythm, S1-S2; left sided chest wall TTP Lungs - normal respiratory effort, clear to auscultation bilaterally, no wheezing Abdomen - soft, nontender, no rebound or guarding Extremities - no edema bilaterally Neuro - awake and alert, no focal deficits Objective Data Active Medications Acetaminophen (Acetaminophen 325 Mg Tablet) 650 mg PO Q6H PRN PRN Reason: Pain, Mild (Pain Scale 1-3), fever or headache Last Admin: 03/31/24 04:21 Dose: 650 mg Documented By: MANOLO Calcium Carbonate (Calcium Carbonate 750 Mg Tab.Chew) 750 mg PO Q4H PRN PRN Reason: Heartburn Enoxaparin Sodium (Enoxaparin Sodium 40 Mg/0.4 Ml Syringe) 40 mg SUBCUT Q24H RYAN Last Admin: 03/30/24 17:31 Dose: 40 mg Documented By: GABINO Magnesium Hydroxide (Milk Of Magnesia 30 Ml Oral.Susp) 30 ml PO DAILY PRN PRN Reason: Constipation Metoprolol Succinate (Metoprolol Succinate Er 100 Mg Tab.Er.24h) 200 mg PO DAILY [facility]; Protocol Last Admin: 03/31/24 08:47 Dose: 200 mg Documented By: AIDA Oxycodone HCl (Oxycodone Hcl Immed Release 5 Mg Tablet) 5 mg PO Q6H PRN PRN Reason: Pain, Severe (Pain Scale 7-10) Last Admin: 03/31/24 11:17 Dose: 5 mg Documented By: AIDA Pharmacy Consult (Consult Rx Etoh Phenob Im/Po) 1 each MISCELLANE ONCE PRN; Protocol PRN Reason: Consult order Phenobarbital (Phenobarbital 15 Mg Tablet) 45 mg PO BID [facility]; Protocol Stop: 04/01/24 21:01 Last Admin: 03/31/24 08:47 Dose: 45 mg Documented By: AIDA Phenobarbital (Phenobarbital 15 Mg Tablet) 15 mg PO DAILY [facility]1983; Protocol Stop: 04/05/24 09:01 Phenobarbital (Phenobarbital 15 Mg Tablet) 15 mg PO BID [facility]; Protocol Stop: 04/03/24 21:01 Sodium Chloride (0.9 % Sodium Chloride Flush 3 Ml Syringe) 3 ml IVFLUSH QSHIFT [facility] 1928[facility]1983 Last Admin: 03/31/24 08:48 Dose: 3 ml Documented By: AIDA Thiamine HCl (Thiamine Hcl 100 Mg Tablet) 100 mg PO DAILY [facility] Last Admin: 03/31/24 08:47 Dose: 100 mg Documented By: AIDA Labs 03/31/24 07:00 03/31/24 07:00 Labs: Laboratory Results - last 24 hr 03/30/24 03/30/24 03/31/24 14:51 14:53 07:00 MCV 98.3 H 98.4 H MCH 33.1 H 34.1 H MCHC 33.6 34.7 RDW 13.8 14.1 Plt Count 334 305 MPV 8.9 L 9.0 L Immature Gran % (Auto) 0.8 H Neut % (Auto) 86.7 H Lymph % (Auto) 6.6 L [place] % (Auto) 5.1 Eos % (Auto) 0.4 Baso % (Auto) 0.4 Lymph # (Auto) 0.6 L [place] # (Auto) 0.5 Eos # (Auto) 0.0 Baso # (Auto) 0.0 Abs Immat Gran (auto) 0.07 H Absolute Neuts (auto) 7.8 Absolute Nucleated RBC 0.000 0.000 Nucleated RBC % (auto) 0.0 0.0 Anion Gap 14 13 Estim Creat Clear Calc 123.7 108.9 Estimated GFR > 60 > 60 Random Glucose 132 H 106 Calcium 8.7 9.4 D Magnesium 1.3 L* 1.6 Total Bilirubin 1.3 H 1.1 H Direct Bilirubin 0.5 AST 38 H 43 H ALT 41 H 39 Alkaline Phosphatase 126 H 121 H Troponin I High Sens 3.4 B-Natriuretic Peptide 432 H Total Protein 6.9 6.9 Albumin 3.7 3.7 Lipase 31 Urine Color Yellow Urine Appearance Clear Urine pH 6.0 Ur Specific [place] 1.015 Urine Protein 30 (1+) H Urine Glucose (UA) Negative Urine Ketones 15 Urine Blood Negative Urine Nitrite Negative Ur Leukocyte Esterase Negative Urine RBC 0-2 Urine WBC 0-5 Ur Squamous Epith Cells 0-2 Urine Bacteria None Seen Hyaline Casts 0-2 Urine Opiates Screen Not Detected Ur Buprenorphine Scrn Not Detected Ur Oxycodone Screen Not Detected Urine Methadone Screen Not Detected Urine Fentanyl Screen Not Detected Ur Barbiturates Screen POSITIVE H Ur Phencyclidine Scrn Not Detected Ur Amphetamines Screen Not Detected U Benzodiazepines Scrn POSITIVE H Urine Cocaine Screen Not Detected U Marijuana (THC) Screen Not Detected Ethyl Alcohol < 10 Assessment and Plan (1) Alcohol related seizure: Status: Acute (2) Hypomagnesemia: Status: Acute Plan 68-year-old male with a reported history of alcohol use and prior alcohol withdrawal seizures who presents to the ED with what appears to be a withdrawal seizure. 1. Alcohol dependence with acute alcohol withdrawal seizure Given IV Versed by the EMS Initiated on phenobarb per protocol, will continue Monitor lytes consider care team / addiction med consult improving slowly 2. Hypo mg repleted in ED, now 1.6 -- will give an additional 2g 3. A. fib with intermitent RVR now improved, continue metoprolol reports taken off OAC about 6 months ago due to frequent falls 4. L chest wall pain ? rib fx (per pt report -- fell about 2 weeks ago and sustained fx) will check cxr pain control Full code DVT pptx - lovenox reason for ongoing hospitalization: alcohol withdrawal requiring phenobarb, electrolyte abnormalities Quality Stroke Does the patient have a stroke diagnosis?: No VTE Prior VTE?: No VTE Risk Level:: Medical - moderate - high VTE Device Contraindication: N/A - Device Ordered VTE Drug Contraindication: N/A - Med Ordered
[2024-03-31] MEDS: Magnesium Sulfate/H2O 2 GM/50 ML PIGGYBACK IV (12:01)
[2024-03-31] MEDS: Enoxaparin Sodium 40 MG/0.4 ML SYRINGE SUBCUT (16:49)
[2024-04-01 03:13] VITALS: BP 127/96; PULSE 81; RESP 12; TEMP 36.6; O2SAT 97
[2024-04-01 08:00] VITALS: BP 140/94; PULSE 83; RESP 20; TEMP 36.6; O2SAT 98
[2024-04-01] MEDS: Metoprolol Succinate ER 100 MG TAB.ER.24H 200 MG PO (08:27)
[2024-04-01] MEDS: PHENobarbitaL 15 MG TABLET 45 MG PO ×2 (08:27→20:28)
[2024-04-01] MEDS: Thiamine HCL 100 MG TABLET PO (08:27)
[2024-04-01] MEDS: Magnesium Oxide 400 MG TABLET PO ×2 (08:27→16:00)
--- NOTE | 2024-04-01 08:46 | HO.THORCONS ---
History of Present Illness Consult details Consult date: 04/01/24 Reason for consult: other (rib fractures ) Requesting physician: Ginny Taylor Narrative: 68-year-old male who initially admitted for alcohol withdrawal seizures. He complained of left rib pain yesterday and reported a history of rib fractures and therefore Rib xrays were performed which showed multiple left-sided rib fractures. Thoracic surgery was therefore consulted. He reports one week ago, he slipped on a wet stair and subsequently fell down a couple of stairs on his left side injuring his left chest and thigh. He did not seek evaluation at that time but was seen a day later due to the severity of pain at a hospital in [place] where he lives where work up was performed and he was told he had left rib fractures and discharged home. He is here visiting his brother. He denies difficulty breathing, fevers, chest pain, leg pain. Review of Systems Constitutional: Constitutional: Denies chills and Denies fever(s) ENT: Denies dizziness Cardiovascular: Cardiovascular: Denies chest pain, Denies palpitations and Denies dyspnea Respiratory: Respiratory: Denies cough, Reports pain on inspiration and Denies dyspnea Gastrointestinal: Gastrointestinal: Denies abdominal pain, Denies nausea and Denies vomiting Integumentary/Breasts: Skin/Breast: Denies rash Neurologic: Denies dizziness Endocrine: Endocrine: Denies palpitations [facility] Social History Social History Household Members: Friend(s) Housing: Apartment Do you presently have visiting nurse or other home services: No Alcohol intake: current Comment: pt refusing bed alarm Patient Tobacco Use Status: Current someday Tobacco user Tobacco use type: Cigarette e-Cigarette/Vaping Use: Currently Using Substance Use Type: Other service: No Meds Allergies Allergy/AdvReac Type Severity Reaction Status Date / Time No Known Allergies Allergy Verified 03/30/24 13:03 Active Medications: Current Medications Acetaminophen (Acetaminophen 325 Mg Tablet) 650 mg PO Q6H PRN PRN Reason: Pain, Mild (Pain Scale 1-3), fever or headache Last Admin: 03/31/24 04:21 Dose: 650 mg Calcium Carbonate (Calcium Carbonate 750 Mg Tab.Chew) 750 mg PO Q4H PRN PRN Reason: Heartburn Enoxaparin Sodium (Enoxaparin Sodium 40 Mg/0.4 Ml Syringe) 40 mg SUBCUT Q24H [facility] Last Admin: 03/31/24 16:49 Dose: 40 mg Magnesium Hydroxide (Milk Of Magnesia 30 Ml Oral.Susp) 30 ml PO DAILY PRN PRN Reason: Constipation Magnesium Oxide (Magnesium Oxide 400 Mg Tablet) [facility] Last Admin: 04/01/24 08:27 Dose: 400 mg Metoprolol Succinate (Metoprolol Succinate Er 100 Mg Tab.Er.24h) 200 mg PO DAILY [facility]; Protocol Last Admin: 04/01/24 08:27 Dose: 200 mg Oxycodone HCl (Oxycodone Hcl Immed Release 5 Mg Tablet) 5 mg PO Q6H PRN PRN Reason: Pain, Severe (Pain Scale 7-10) Last Admin: 03/31/24 19:37 Dose: 5 mg Pharmacy Consult (Consult Rx Etoh Phenob Im/Po) 1 each MISCELLANE ONCE PRN; Protocol PRN Reason: Consult order Phenobarbital (Phenobarbital 15 Mg Tablet) 45 mg PO BID [facility]; Protocol Stop: 04/01/24 21:01 Last Admin: 04/01/24 08:27 Dose: 45 mg Phenobarbital (Phenobarbital 15 Mg Tablet) 15 mg PO DAILY [facility]; Protocol Stop: 04/05/24 09:01 Phenobarbital (Phenobarbital 15 Mg Tablet) 15 mg PO BID [facility]; Protocol Stop: 04/03/24 21:01 Sodium Chloride (0.9 % Sodium Chloride Flush 3 Ml Syringe) 3 ml IVFLUSH QSHIFT [facility] Last Admin: 04/01/24 08:26 Dose: Not Given Thiamine HCl (Thiamine Hcl 100 Mg Tablet) 100 mg PO DAILY [facility] Last Admin: 04/01/24 08:27 Dose: 100 mg Home Medications ?Medication ?Instructions ?Recorded ?Confirmed ?Last Taken ?Type metoprolol succinate 200 mg 200 mg PO DAILY 03/30/24 03/30/24 Unknown History tablet,extended release 24 hr niacin 100 mg tablet 100 mg PO DAILY 03/30/24 03/30/24 Unknown History Physical Exam Vital Signs: Vital Signs: Last Vital Signs Temp 97.9 F 04/01/24 03:13 Pulse 81 04/01/24 03:13 Resp 12 04/01/24 03:13 BP 127/96 H 04/01/24 03:13 Pulse Ox 97 04/01/24 03:13 O2 Del Method Room Air 04/01/24 03:13 BMI result Body Mass Index 25.6 Const: General: comfortable, no acute distress and alert Orientation/consciousness: patient oriented x3 Neck: Neck: No JVD Chest: Chest palpation & inspection: normal inspection of the chest, abnormal inspection of the chest (pain at left chest wall) no flail chest appearance and no crepitus Resp: Effort & Inspection: normal respiratory effort, able to speak in complete sentences, no cough, no respiratory distress, no segmental paradox chest wall movement, no use of accessory muscles and symmetric chest movement Skin: General skin exam: no rashes or lesions noted Neuro: General: patient oriented x3 and moves all extremities Results Labs 03/31/24 07:00 03/31/24 07:00 Labs: Urine 03/30/24 Range/Units 14:53 Urine Color Yellow Urine Appearance Clear Urine pH 6.0 (5.0-9.0) Ur Specific [place] 1.015 (1.005-1.025) Urine Protein 30 (1+) H (Neg-Trace) mg/dL Urine Glucose (UA) Negative (Negative) mg/dL All other labs normal. Imaging Chest x-ray: report reviewed and image reviewed Assessment and Plan (1) Left rib fracture: Status: Acute Plan 68-year-old male admitted for alcohol withdrawal seizures who sustained a fall 1 week ago with multiple left rib fractures. He is stable from respiratory standpoint without evidence of flail chest, therefore no acute surgical intervention needed. Recommend good pain control while these ribs heal which can take up to 6 weeks and incentive spirometer use at least 10x/hr. Procedures Date of Service Date of Service: 04/01/24
[2024-04-01] MEDS: oxyCODONE HCl Immed Release 5 MG TABLET PO (10:45)
[2024-04-01 12:00] VITALS: BP 122/90; PULSE 82; RESP 20; TEMP 36.4; O2SAT 99
[2024-04-01 15:47] VITALS: BP 135/86; PULSE 96; RESP 20; TEMP 36.7; O2SAT 94
[2024-04-01] MEDS: Enoxaparin Sodium 40 MG/0.4 ML SYRINGE SUBCUT (16:00)
--- NOTE | 2024-04-01 16:52 | P.PNIM_ITS ---
Subjective Subjective Date of Service: 04/01/24 Interval History: rib fracture ,alcohol withdrwals Review of Systems has rib cage pain seems somwwhat anxious Physical Exam 2 Vital Signs: Vital Signs: Last Vital Signs Temp 98.0 F 04/01/24 15:47 Pulse 96 04/01/24 15:47 Resp 20 04/01/24 15:47 BP 135/86 04/01/24 15:47 Pulse Ox 94 04/01/24 15:47 O2 Del Method Room Air 04/01/24 15:47 BMI result Body Mass Index 25.6 General - no acute distress. Cardiovascular - regular rate and rhythm, S1-S2. Lungs - air entry fair ,poor efforts on left side due to pain. Abdomen - soft, nontender, no rebound or guarding Extremities - no edema bilaterally Neuro - awake and alert, no focal deficits Objective Data Active Medications Acetaminophen (Acetaminophen 325 Mg Tablet) 650 mg PO Q6H PRN PRN Reason: Pain, Mild (Pain Scale 1-3), fever or headache Last Admin: 03/31/24 04:21 Dose: 650 mg Documented By: MANOLO Calcium Carbonate (Calcium Carbonate 750 Mg Tab.Chew) 750 mg PO Q4H PRN PRN Reason: Heartburn Enoxaparin Sodium (Enoxaparin Sodium 40 Mg/0.4 Ml Syringe) 40 mg SUBCUT Q24H [facility] Last Admin: 04/01/24 16:00 Dose: 40 mg Documented By: RAFA Magnesium Hydroxide (Milk Of Magnesia 30 Ml Oral.Susp) 30 ml PO DAILY PRN PRN Reason: Constipation Magnesium Oxide (Magnesium Oxide 400 Mg Tablet) 400 mg PO BIDPC COUNT INCLUDES [facility] Last Admin: 04/01/24 16:00 Dose: 400 mg Documented By: RAFA Metoprolol Succinate (Metoprolol Succinate Er 100 Mg Tab.Er.24h) 200 mg PO DAILY [facility]; Protocol Last Admin: 04/01/24 08:27 Dose: 200 mg Documented By: RIOSCEL Oxycodone HCl (Oxycodone Hcl Immed Release 5 Mg Tablet) 5 mg PO Q6H PRN PRN Reason: Pain, Severe (Pain Scale 7-10) Last Admin: 04/01/24 10:45 Dose: 5 mg Documented By: RAFA Oxycodone HCl (Oxycodone Hcl Immed Release 5 Mg Tablet) 10 mg PO BID PRN PRN Reason: Pain, Moderate(Pain Scale 4-6) Pharmacy Consult (Consult Rx Etoh Phenob Im/Po) 1 each MISCELLANE ONCE PRN; Protocol PRN Reason: Consult order Phenobarbital (Phenobarbital 15 Mg Tablet) 45 mg PO BID [facility]; Protocol Stop: 04/01/24 21:01 Last Admin: 04/01/24 08:27 Dose: 45 mg Documented By: GABE Phenobarbital (Phenobarbital 15 Mg Tablet) 15 mg PO DAILY [facility]; Protocol Stop: 04/05/24 09:01 Phenobarbital (Phenobarbital 15 Mg Tablet) 15 mg PO BID [facility]; Protocol Stop: 04/03/24 21:01 Sodium Chloride (0.9 % Sodium Chloride Flush 3 Ml Syringe) 3 ml IVFLUSH QSHIFT [facility] Last Admin: 04/01/24 16:03 Dose: Not Given Documented By: RAFA Non-Admin Reason: No Access Thiamine HCl (Thiamine Hcl 100 Mg Tablet) 100 mg PO DAILY [facility] Last Admin: 04/01/24 08:27 Dose: 100 mg Documented By: GABE Labs 03/31/24 07:00 03/31/24 07:00 Assessment and Plan (1) Alcohol related seizure: Status: Acute (2) Hypomagnesemia: Status: Acute Plan 68-year-old male with a reported history of alcohol use and prior alcohol withdrawal seizures who presents to the ED with what appears to be a withdrawal seizure. 1. Alcohol dependence with acute alcohol withdrawal seizure Given IV Versed by the EMS Initiated on phenobarb per protocol, will continue Monitor lytes consider care team / addiction med consult improving slowly 2. Hypo mg repleted in ED, now 1.6 -- will give an additional 2g 3. A. fib with intermitent RVR now improved, continue metoprolol reports taken off OAC about 6 months ago due to frequent falls 4. L chest wall pain ? rib fx (per pt report -- fell about 2 weeks ago and sustained fx) cxr -multiple rib fracture on left side pain control surgery eval pending Full code DVT pptx - lovenox reason for ongoing hospitalization: alcohol withdrawal requiring phenobarb, electrolyte abnormalities Quality Stroke Does the patient have a stroke diagnosis?: No VTE Prior VTE?: No VTE Risk Level:: Medical - moderate - high VTE Device Contraindication: N/A - Device Ordered VTE Drug Contraindication: N/A - Med Ordered
[2024-04-01 20:00] VITALS: BP 168/94; PULSE 71; RESP 21; TEMP 36.2; O2SAT 99
[2024-04-01 21:48] LABS: Glucose, Whole Blood 111 mg/dL (60-115)
[2024-04-01 23:08] VITALS: BP 152/100; PULSE 93; RESP 20; TEMP 36.8; O2SAT 99
[2024-04-02 03:06] VITALS: BP 154/93; PULSE 73; RESP 18; TEMP 36.2; O2SAT 98
[2024-04-02 07:21] VITALS: BP 122/91; PULSE 78; RESP 18; TEMP 36.4; O2SAT 97
[2024-04-02 08:16] VITALS: BP 122/91; PULSE 78
[2024-04-02] MEDS: Metoprolol Succinate ER 100 MG TAB.ER.24H 200 MG PO (08:16)
[2024-04-02] MEDS: Thiamine HCL 100 MG TABLET PO (08:17)
[2024-04-02] MEDS: Magnesium Oxide 400 MG TABLET PO ×2 (08:17→15:54)
[2024-04-02] MEDS: PHENobarbitaL 15 MG TABLET PO ×2 (08:19→20:06)
[2024-04-02] MEDS: oxyCODONE HCl Immed Release 5 MG TABLET PO ×2 (08:36→15:54)
[2024-04-02 11:37] VITALS: BP 116/77; PULSE 69; RESP 18; TEMP 36.5; O2SAT 97
--- NOTE | 2024-04-02 14:31 | HO.PM.IMPN ---
Subjective Subjective Date of Service: 04/02/24 Interval History: rib frcature Review of Systems has significant pain no sob or cough Physical Exam Vital Signs: Vital Signs: Last Vital Signs Temp 97.7 F 04/02/24 11:37 Pulse 69 04/02/24 11:37 Resp 18 04/02/24 11:37 BP 116/77 04/02/24 11:37 Pulse Ox 97 04/02/24 11:37 O2 Del Method Room Air 04/02/24 11:37 BMI result Body Mass Index 25.6 General - no acute distress. Cardiovascular - regular rate and rhythm, S1-S2. Lungs - air entry fair ,poor efforts on left side due to pain. Abdomen - soft, nontender, no rebound or guarding Extremities - no edema bilaterally Neuro - awake and alert, no focal deficits Objective Data Active Medications Acetaminophen (Acetaminophen 325 Mg Tablet) 650 mg PO Q6H PRN PRN Reason: Pain, Mild (Pain Scale 1-3), fever or headache Last Admin: 03/31/24 04:21 Dose: 650 mg Documented By: MANOLO Calcium Carbonate (Calcium Carbonate 750 Mg Tab.Chew) 750 mg PO Q4H PRN PRN Reason: Heartburn Docusate Sodium (Docusate Sodium 100 Mg Capsule) 100 mg PO BID PRN PRN Reason: Constipation Enoxaparin Sodium (Enoxaparin Sodium 40 Mg/0.4 Ml Syringe) 40 mg SUBCUT Q24H [facility] Last Admin: 04/01/24 16:00 Dose: 40 mg Documented By: RAFA Magnesium Hydroxide (Milk Of Magnesia 30 Ml Oral.Susp) 30 ml PO DAILY PRN PRN Reason: Constipation [facility] ([facility] Mg [facility]) [facility] Last Admin: 04/02/24 08:17 Dose: 400 mg Documented By: RAFA Metoprolol Succinate (Metoprolol Succinate Er 100 Mg Tab.Er.24h) 200 mg PO DAILY [facility]; Protocol Last Admin: 04/02/24 08:16 Dose: 200 mg Documented By: RAFA Oxycodone HCl (Oxycodone Hcl Immed Release 5 Mg Tablet) 5 mg PO Q6H PRN PRN Reason: Pain, Severe (Pain Scale 7-10) Last Admin: 04/02/24 08:36 Dose: 5 mg Documented By: RAFA Oxycodone HCl (Oxycodone Hcl Immed Release 5 Mg Tablet) 10 mg PO BID [facility] Pharmacy Consult (Consult Rx Etoh Phenob Im/Po) 1 each MISCELLANE ONCE PRN; Protocol PRN Reason: Consult order Phenobarbital (Phenobarbital 15 Mg Tablet) 15 mg PO DAILY [facility]; Protocol Stop: 04/05/24 09:01 Phenobarbital (Phenobarbital 15 Mg Tablet) 15 mg PO BID [facility]; Protocol Stop: 04/03/24 21:01 Last Admin: 04/02/24 08:19 Dose: 15 mg Documented By: RAFA Polyethylene Glycol (Polyethylene Glycol 3350 17 Gm Powd.Pack) 17 gm PO DAILY PRN PRN Reason: Constipation Sodium Chloride (0.9 % Sodium Chloride Flush 3 Ml Syringe) 3 ml IVFLUSH QSHIFT [facility] Last Admin: 04/02/24 08:15 Dose: Not Given Documented By: RAFA Non-Admin Reason: No Access Thiamine HCl (Thiamine Hcl 100 Mg Tablet) 100 mg PO DAILY [facility] Last Admin: 04/02/24 08:17 Dose: 100 mg Documented By: RAFA Labs 03/31/24 07:00 03/31/24 07:00 Labs: Laboratory Results - last 24 hr 04/01/24 21:39 POC Glucose 111 Assessment and Plan (1) Left rib fracture: Status: Acute (2) Alcohol related seizure: Status: Acute (3) Hypomagnesemia: Status: Acute Plan 68-year-old male with a reported history of alcohol use and prior alcohol withdrawal seizures who presents to the ED with what appears to be a withdrawal seizure. 1. Alcohol dependence with acute alcohol withdrawal seizure Given IV Versed by the EMS Initiated on phenobarb per protocol, will continue Monitor lytes consider care team / addiction med consult improving slowly 2. Hypo mg repleted in ED, now 1.6 -- will give an additional 2g 3. A. fib with intermitent RVR now improved, continue metoprolol reports taken off OAC about 6 months ago due to frequent falls 4. L chest wall pain ? rib fx (per pt report -- fell about 2 weeks ago and sustained fx) cxr -multiple rib fracture on left side surgery eval rec:pain control, no acute surgerical intervention, Full code DVT pptx - lovenox reason for ongoing hospitalization: alcohol withdrawal requiring phenobarb, electrolyte abnormalities, multiple rib fracture -pain uncontrolled -need po and iv pain meds . Quality Stroke Does the patient have a stroke diagnosis?: No VTE Prior VTE?: No VTE Risk Level:: Medical - moderate - high VTE Device Contraindication: N/A - Device Ordered VTE Drug Contraindication: N/A - Med Ordered
[2024-04-02 14:59] VITALS: BP 142/72; PULSE 70; RESP 16; TEMP 36.6; O2SAT 97
--- NOTE | 2024-04-02 15:12 | PC.NURSE ---
pt transferred from [facility] , at alert , appears agitated , and anxious . pt refusing bed alarm , camera in room for safety, belongings list updated . pt aware of plan of care , pt refusing IV access , made aware .
[2024-04-02] MEDS: Enoxaparin Sodium 40 MG/0.4 ML SYRINGE SUBCUT (15:55)
--- NOTE | 2024-04-02 17:06 | PC.NURSE ---
pt brother amadou - [phone] , states he is willing to take pt home but only if he is safe to do so , pt brother states hes going away this weekend and is afraid to leave him alone due to seizures . pt bother also states if possible he would like him to go to rehab .
[2024-04-02 19:31] VITALS: BP 135/78; PULSE 81; RESP 14; TEMP 36.4; O2SAT 96
[2024-04-02] MEDS: oxyCODONE HCl Immed Release 5 MG TABLET 10 MG PO (20:06)
[2024-04-03 03:11] VITALS: BP 149/95; PULSE 82; RESP 14; TEMP 36.5; O2SAT 99
[2024-04-03 07:34] VITALS: BP 137/78; PULSE 63; RESP 16; TEMP 36.6; O2SAT 97
[2024-04-03] MEDS: Metoprolol Succinate ER 100 MG TAB.ER.24H 200 MG PO (08:12)
[2024-04-03] MEDS: Magnesium Oxide 400 MG TABLET PO (08:12)
[2024-04-03] MEDS: PHENobarbitaL 15 MG TABLET PO (08:13)
[2024-04-03] MEDS: Thiamine HCL 100 MG TABLET PO (08:13)
[2024-04-03] MEDS: oxyCODONE HCl Immed Release 5 MG TABLET 10 MG PO ×3 (08:14→16:17)
--- NOTE | 2024-04-03 11:52 | PM.DS ---
DS: Providers Provider Date of Service: 04/03/24 Date of admission: 03/30/24 16:49 Date of discharge: 04/03/24 Primary care physician: Unknown Physician Consults: 04/01/24 07:59 Consult to Thoracic Surgery Routine Consulting Provider: Devyn An Reason for consultation: multiple rib fracture Has provider been notified: No 04/03/24 09:51 Addiction Medicine Routine Consulting Provider: Addiction Covering Reason for consultation: Alcohol use Has provider been notified: No Attending physician on discharge: Ginny Taylor Discharging clinician: Ginny Taylor DS: Diagnosis Discharge Diagnosis (1) Left rib fracture: Status: Acute (2) Alcohol related seizure: Status: Acute (3) Hypomagnesemia: Status: Acute DS: Summary Hospital Course Hospital Course: HPI:68-year-old male who is brought into the emergency room by EMS for what appears to be alcohol withdrawal seizures. The patient is currently unable to provide a meaningful history and hence the history is obtained from the ED providers report. Apparently the patient is visiting friends in the area and was brought to the ED by paramedics. Apparently he had a seizure which was treated with 2 mg of Versed by EMS. On arrival to the ED the patient was found to have the following on workup: Magnesium 1.3, bilirubin 1.3, AST 30 ALT 41. The patient was treated with loading dose of phenobarbital and now will be admitted for suspected alcohol withdrawal seizures. The patient is seen examined the emergency room around 04:00 o'clock. He appears to be less confused. He reports that he drinks several beers and ?nips? daily. Reports that his last drink was 2-3 days ago but is not 100% sure. He reports prior alcohol withdrawal seizure. He reports prior hospitalizations for alcohol withdrawal. Past medical history Reports being on metoprolol but unsure why Past surgical history Denies Family history Unclear Social history reports to drinking daily. Hospital course: Patient was admitted to the hospital because of alcohol withdrawal seizure: Given Versed in the EMS, afterwards started on phenobarb protocol seems to be improving significantly. Patient CIWA scale is 0. Patient was strongly advised to abstain from alcohol use. Hypomagnesemia repleted and resolved, limited magnesium supplements magnesium oxide 400 mg daily for 1 week supply given. A. fib -heart rate controlled, continue metoprolol,reports taken off OAC about 6 months ago due to frequent falls In addition patient had left chest wall pain which he fell outpatient 2 weeks ago-has multiple ribs fracture-was given IV morphine and oxycodone p.o. for pain control patient pain seems to be tolerable now patient will be going home with p.o. oxycodone. Bowel regimen. Patient was strongly advised to follow-up with PCP outpatient. plan: Oxycodone 10 mg p.o. q.4 hours p.r.n. as needed for pain. Follow up with your PCP regarding your multiple left rib fractures. Continue to use your incentive spirometer hourly for the next couple of weeks. If any new symptoms worsening ribcage pain or fever or shortness of breath go to the nearest emergency room for evaluation. Above management discussed with the patient in detail length she understand and in agreement with the above plan, time spent 40 minutes and 50% time spent on counseling. Time Attestation Total time managing care of this patient today: 40 mintues. Discharge Coordination Time (in mins): 40 min Quality: Safe Use of Opioids Does Pt have an Active Cancer Diagnosis on the Problem List?: No Quality: Stroke Does the patient have a stroke diagnosis?: No Physical Exam Vital Signs: Vital Signs: Last Vital Signs Temp 97.9 F 04/03/24 07:34 Pulse 63 04/03/24 07:34 Resp 16 04/03/24 07:34 BP 137/78 04/03/24 07:34 Pulse Ox 97 04/03/24 07:34 O2 Del Method Room Air 04/03/24 07:34 BMI result Body Mass Index 25.6 General - no acute distress. Cardiovascular - regular rate and rhythm, S1-S2. Lungs - air entry fair ,poor efforts on left side due to pain. Abdomen - soft, nontender, no rebound or guarding Extremities - no edema bilaterally Neuro - awake and alert, no focal deficits DS: Data Imaging Chest x-ray: Radiologist's impression: ITS Impressions Chest X-Ray 03/30/24 13:00 IMPRESSION: Findings as above. Electronically signed by: Dutch Rebolledo MD 03/30/2024 02:17 PM EDT RP Head CT 03/30/24 13:10 IMPRESSION: No acute intracranial finding. Electronically signed by: Dutch Rebolledo MD 03/30/2024 02:41 PM EDT RP Ribs X-Ray 03/31/24 10:20 IMPRESSION: 1. Multiple left-sided rib fractures. 2. No pneumothorax. 3. Small bilateral pleural effusions. 4. Mild bibasilar atelectasis. Electronically signed by: Loni Ng MD 03/31/2024 01:37 PM EDT RP Discharge Plan Discharge Anticipated Discharge Date/Time: 04/03/24 11:36 Patient Disposition: Home, Self-Care Discharge Diagnosis: mulitple rib fracture ,alcohol withdrawals. Referrals: Physician,Unknown J [Primary Care Provider] - 1 Week Discharge Medications: New folic acid 1 mg Tablet 1 mg PO DAILY Qty: 30 0RF thiamine mononitrate (vit B1) 100 mg Tablet 100 mg PO DAILY Qty: 30 0RF polyethylene glycol 3350 17 gram Powder In Packet 17 g PO DAILY PRN (Reason: Constipation) Qty: 30 0RF magnesium oxide 400 mg (241.3 mg magnesium) Tablet 400 mg PO DAILY Qty: 7 0RF docusate sodium 100 mg Capsule 100 mg PO BID PRN (Reason: Constipation) Qty: 30 0RF oxycodone 10 mg tablet 10 mg PO Q4H PRN (Reason: pain) Qty: 30 0RF Rx Instructions: Partial Fill upon patient request. Continued metoprolol succinate 200 mg tablet extended release 24 hr 200 mg PO DAILY niacin 100 mg tablet 100 mg PO DAILY Discharge Orders: Discharge Order (Routine); Ordered 04/03/24 Ordered By: Ginny Taylor Diet: Advance to usual diet Activity on Discharge: As tolerated Stand Alone Forms: Patient Portal Discharge page Print Language: Setswana Activity Restrictions/Additional Instructions: Follow up with your PCP regarding your multiple left rib fractures. Continue to use your incentive spirometer hourly for the next couple of weeks. Care Plan Goals: Patient was admitted to the hospital because of alcohol withdrawal seizure: Given Versed in the EMS, afterwards started on phenobarb protocol seems to be improving significantly. Patient CIWA scale is 0. Patient was strongly advised to abstain from alcohol use. Hypomagnesemia repleted and resolved, limited magnesium supplements magnesium oxide 400 mg daily for 1 week supply given. A. fib -heart rate controlled, continue metoprolol,reports taken off OAC about 6 months ago due to frequent falls In addition patient had left chest wall pain which he fell outpatient 2 weeks ago-has multiple ribs fracture-was given IV morphine and oxycodone p.o. for pain control patient pain seems to be tolerable now patient will be going home with p.o. oxycodone. Bowel regimen. Patient was strongly advised to follow-up with PCP outpatient. Health Concerns: Oxycodone 10 mg p.o. q.4 hours p.r.n. as needed for pain. Incentive spirometry as above. Follow-up with PCP outpatient. If any new symptoms worsening ribcage pain or fever or shortness of breath go to the nearest emergency room for evaluation. Plan of Treatment: As above. Assessment: As above. Patient Instructions: Rib Fracture (DC), Alcohol Withdrawal (DC)
--- NOTE | 2024-04-03 11:58 | MHC.CM.PN ---
Addendum entered by Kaylah Garcia 04/03/24 12:26: PT CONFIRMS HE WILL BE GOING TO HIS BROTHERS HOME FROM HERE WITH A PLAN TO RETURN TO HIS HOME TOMORROW HE REPORTS HIS BROTHER WILL PROVIDE TRANSPORT Original Note: PT CLEARED TO DC HOME TODAY WITH NO SERVICES
[2024-04-03] MEDS: Folic Acid 1 MG TABLET PO (12:01)
[2024-04-03 15:23] VITALS: BP 124/79; PULSE 76; RESP 18; TEMP 37.1; O2SAT 98
--- NOTE | 2024-04-03 15:41 | MHC.RECOVRN ---
AUDIT-C Brief Intervention Pt had positive screen for unhealthy alcohol use on admission, subsequently met with t/w to discuss alcohol use and recovery supports/options. This press writer met with patient, along with assistant golf coach Efrain, to discuss current alcohol use and concerns related to increased risk of alcohol related problems.? Pt reports 2 nips vodka plus 2 beers daily. Discussed how alcohol use has impacted health, including negative impact on overall physical wellbeing. Pt very difficult to engage in conversation. Pt reports he has been drinking alcohol since 1969. Pt reports his longest period of recovery was 6 months during the pandemic. Discussed risk reduction strategies including drinking below the recommended limit. Provided pt with written resources including information on inpatient and outpatient treatment, LINDA, harm reduction, and recovery coaching. Pt reports [place] and then goes to the library to read the paper which helps him reduce the amount he drinks. Pt plans to return home to [place] upon dc. Pt provided with t/w contact information if questions or concerns arise. Denies other questions or concerns at this time.?
== END 2024-04-03 16:51 | disposition home or self-care (01) | DRG 897 ==
LOC: HO.ED 15:47 → HO.EDOVER 17:03 → HO.IMC 18:01 → HO.S3 04-02 13:17
PROVIDERS: Admitting Provider Family Medicine; Emergency Provider Emergency Medicine; Visit Provider Internal Medicine
DX: F10.239 Alcohol dependence with withdrawal, unspecified (principal); S22.42XA Multiple fractures of ribs, left side, initial encounter for closed fracture; R56.9 Unspecified convulsions; E83.42 Hypomagnesemia; I49.1 Atrial premature depolarization; I48.91 Unspecified atrial fibrillation; W19.XXXA Unspecified fall, initial encounter; F17.210 Nicotine dependence, cigarettes, uncomplicated; Z71.6 Tobacco abuse counseling; Z71.41 Alcohol abuse counseling and surveillance of alcoholic; Z79.899 Other long term (current) drug therapy
CPT/HCPCS: 36415; 70450; 71045; 71101; 80048; 80053; 80076; 80307; 81001; 82947; 83690; 83735; 83880; 84484; 85025; 85027; 93005; 99285; J1650; J2560; J3475

== ENCOUNTER → 2024-03-30 13:02 | Outpatient (BNV) | payer MEDICARE, MEDICAID, SELFPAY | PROVIDERS: Admitting Provider Family Medicine; Emergency Provider Emergency Medicine; Visit Provider Internal Medicine | DX: I48.91 Unspecified atrial fibrillation (principal); R56.9 Unspecified convulsions | CPT/HCPCS: 93010 ==

== ENCOUNTER → 2024-03-30 16:49 | Outpatient (BNV) | payer MEDICARE, MEDICAID, SELFPAY | PROVIDERS: Admitting Provider Family Medicine; Emergency Provider Emergency Medicine; Visit Provider Family Medicine | DX: R56.9 Unspecified convulsions (principal); F10.20 Alcohol dependence, uncomplicated; S22.32XA Fracture of one rib, left side, initial encounter for closed fracture; E83.42 Hypomagnesemia | CPT/HCPCS: 99223; 99231; 99232; 99239 ==

== ENCOUNTER → 2024-03-30 16:49 | Outpatient (BNV) | payer MEDICARE, MEDICAID, SELFPAY | PROVIDERS: Admitting Provider Family Medicine; Emergency Provider Emergency Medicine; Visit Provider Physician Assistant Surgical | DX: S22.32XA Fracture of one rib, left side, initial encounter for closed fracture (principal) | CPT/HCPCS: 99222 ==